=== PATIENT | female | born 1935 | race Caucasian/White ===

== ENCOUNTER 2018-03-16 07:10 | Emergency (ER) | payer MEDICARE, OTHER, SELFPAY ==
[2018-03-16] VITALS (7 sets, daily range): BP systolic 162–218; BP diastolic 73–90; PULSE 60–72; RESP 14–20; TEMP 37.3; O2SAT 97–100
--- NOTE | 2018-03-16 07:30 | ED_ITS ---
HPI - Altered Mental Status General Chief Complaint: Altered Mental Status Stated Complaint: Confusion Time Seen by Provider: 03/16/18 07:30 Source: patient, family and EMS Mode of arrival: EMS Limitations: no limitations History of Present Illness HPI narrative: Patient is an 82-year-old female brought in by EMS for concerns of altered mental status this morning. It was reported by EMS and also the patient's daughter who was at bedside at this morning the patient was standing at the counter trying to make coffee when the daughter stated that she was drooling, was mumbling, could not move. Apparently this has happened in the past. Has been going on for the past 2 years however has been progressively happening more often over the past 2 weeks. Apparently the patient has also fallen in the past because of this but no falls reported today. Patient's daughter states that these events are always very similar in appearance. No shaking like movements however is confused. Has lasted less than 1 min to up to 10 min in length. Patient and daughter state that the patient returns to ? normal? when the event ends. Patient has had 2 head CTs in the past for evaluation of this. One in November of last year in the other 1 in June of last year. Patient states she does not remember the episodes when they happen. Has no prodrome symptoms. Patient states she has talked with her primary doctor regarding them. Has reportedly never seen a neurologist or had any EEG. She states that when she talk to her primary doctor about them he ?increases her blood pressure medicine ?family also concerned because they feel that over the past several weeks the patient has become more confused. Is asking where her is who had several years ago. Is also confused about where she is. This does not appear to be consistent symptoms. Unknown if this is worsening or associated to the altered mental status symptoms that she presented with today. Related Data Previous Rx's Medication Instructions Recorded ACETAMINOPHEN 0 mg PO Q4HP PRN #30 12/05/16 amlodipine [Norvasc] 10 mg PO QDAY #30 12/05/16 enoxaparin [Lovenox] 40 mg SQ QDAY 10 Days #0 12/05/16 nitrofurantoin macrocrystal 100 mg PO BID 5 Days #10 cap 03/16/18 Allergies Allergy/AdvReac Type Severity Reaction Status Date / Time Iodine and Iodide Containing Allergy Unknown Unverified 12/26/17 11:58 Produc [IODINE AND IODIDE CONTAINING PRODUC] Review of Systems Review of Systems Patient reports no abnormal symptoms the time of my evaluation Constitutional Denies fatigue, Denies fever(s), Denies malaise and Denies weakness Eyes Denies blurry vision, Denies dry eyes and Denies itchy eyes ENT Ears, Nose, Mouth, and Throat: Denies dysphagia, Denies vertigo, Denies dizziness, Denies throat swelling and Denies tongue swelling Cardiovascular Denies chest pain, Denies syncope, Denies rapid heart rate, Denies pedal edema, Denies palpitations and Denies dyspnea Respiratory Denies cough, Denies dyspnea, Denies stridor and Denies wheezing Gastrointestinal Gastrointestinal: Denies abdominal pain, Denies melena, Denies constipation, Denies cramping, Denies dysphagia, Denies diarrhea, Denies nausea and Denies vomiting Genitourinary Denies dysuria and Denies flank pain Musculoskeletal Denies myalgias, Denies arthralgias, Denies muscle cramps, Denies muscle weakness and Denies numbness Integumentary/Breasts Denies lesions, Denies rash and Denies wounds Neurologic Reports behavioral changes (This morning but not at the time of my exam), Reports confusion (This morning but not at the time of my exam), Denies vertigo , Denies dizziness, Denies syncope, Denies numbness, Denies convulsions, Denies seizure-like activity, Denies sensory deficit, Denies paresthesias and Denies weakness Psychiatric Reports behavioral changes (This morning but not at the time of my exam) and Reports confusion (This morning but not at the time of my exam) Endocrine Denies fatigue and Denies palpitations Hematologic/Lymphatic Denies easy bleeding and Denies easy bruising Allergic/Immunologic Denies urticaria, Denies itchy eyes, Denies throat swelling, Denies tongue swelling and Denies wheezing Exam Initial Vital Signs Initial Vital Signs: Vital Signs Temperature 99.2 F 03/16/18 07:13 Pulse Rate 64 03/16/18 07:13 Respiratory Rate 19 03/16/18 07:13 Blood Pressure 218/80 H 03/16/18 07:13 Pulse Oximetry 97 03/16/18 07:13 Const General: cooperative, healthy appearing, comfortable, well developed, well groomed and No acute distress Orientation: alert, awake, oriented to person, oriented to place and not oriented to time (Does not know the year or the month or the president) [facility] Head: normal to inspection, normocephalic and atraumatic Ears: hearing grossly normal bilaterally Nose: external nose normal Face and sinus: normal facial exam Mouth: oral mucosae normal Eyes Alignment and Position: alignment normal Eyelids: eyelids normal Conjunctivae: conjunctivae normal Pupils: PERRL EOM: EOM intact bilaterally Neck Neck: normal visual inspection Chest Chest: normal inspection of the chest Resp Effort & Inspection: normal respiratory effort Auscultation: clear to auscultation bilaterally Cardio Rate: regular rate Rhythm: regular rhythm Pulses: radial pulses present GI Inspection: normal to inspection and non-distended Palpation: soft, No guarding and No tender Back/Spine/Pelvis Back: normal to inspection, No back tenderness and No CVA tenderness Skin General: no rashes or lesions noted Lesions: no lesions Rashes: no rashes Wounds: no wounds Neuro General: alert, awake, moves all extremities, no meningeal signs, no focal motor deficits and CN's II-XI intact bilaterally Cranial Nerves: CN's II-XI intact bilaterally Cognition: abnormal cognition (Does not know the year, the month, the president) Speech: speech normal Motor: muscle tone normal throughout and no pronator drift Sensory Exam: no sensory deficits noted Coordination: [id number] test normal Extrem General: normal to inspection, capillary refill normal and normal exam except as noted Psych Appearance: grossly normal and well kempt Affect: normal affect Attitude: cooperative Course Orders Ordered: ED Orders 03/16/18 08:05 CT head/brain wo con Stat 03/16/18 08:40 Urine Culture Stat Urine Microscopic Stat 03/16/18 08:59 Basic Metabolic Panel Stat Complete Blood Count AUTO DIFF Stat Vital Signs - 8 hr 03/16/18 07:13 03/16/18 07:37 03/16/18 08:02 Temperature 99.2 F Pulse Rate 64 72 65 Respiratory Rate 19 19 15 Blood Pressure 218/80 H Blood Pressure [Left Arm] 187/90 H 174/76 H Pulse Oximetry 97 100 97 03/16/18 08:50 03/16/18 09:32 03/16/18 10:05 Temperature Pulse Rate 60 63 64 Respiratory Rate 20 20 14 Blood Pressure Blood Pressure [Left Arm] 162/73 H 176/89 H 166/83 H Pulse Oximetry 98 97 99 MDM - Altered Mental Status Medical Records Attestation: I reviewed the patient's medical records. Lab Data Attestation: I reviewed the patient's lab results. Result diagrams: 03/16/18 08:59 03/16/18 08:59 Lab Results 03/16/18 03/16/18 03/16/18 Range/Units 08:40 08:59 08:59 WBC 6.3 (4.5-11.0) X10^3/uL RBC 4.25 (4.0-5.2) X10^6/uL Hgb 13.3 (12.0-16.0) g/dL Hct 38.4 (36-46) % MCV 90.4 (80-100) fL MCH 31.2 (26-34) PG MCHC 34.6 (30-36) % RDW 13.8 (11.6-14.8) % Plt Count 217 (150-400) X10^3/uL Neut % (Auto) 81.4 H (50-75) % Lymph % (Auto) 10.1 L (25-40) % [place] % (Auto) 7.7 (3-14) % Eos % (Auto) 0.4 L (2-4) % Baso % (Auto) 0.4 (0-2) % Neut # (Auto) 5200 (9272-6382) /uL Sodium 132 L (137-145) mmol/L Potassium 4.6 (3.4-5.1) mmol/L Chloride 99 (98-107) mmol/L Carbon Dioxide 23 (22-32) mmol/L BUN 20 H (7-17) mg/dL Creatinine 1.50 H (0.52-1.04) mg/dL Estimated GFR 33.3 L (>60) mL/min BUN/Creatinine Ratio 13.3 (6-22) Glucose 95 (80-110) mg/dL Calcium 9.0 (8.4-10.2) mg/dL Urine RBC None seen (0-5/HPF) Urine WBC 5-10/hpf H (0-5/HPF) Urine Bacteria Moderate (10-30) H (None) Ur Culture Indicated? Specimen cultured Micro UA Comment Not Reportable Imaging Data CT scan - head: Radiologist's impression: PROCEDURE: CT HEAD/BRAIN WO CON INDICATIONS: Altered mental status and passing out TECHNIQUE: Noncontrast 4.5 mm thick angled axial sections acquired from the foramen magnum to the vertex, with coronal and sagittal reformats. For radiation dose reduction, the following was used: automated exposure control, adjustment of mA and/or kV according to patient size. COMPARISON: [facility], MR, STROKE PROTOCOL, 02/21/2017, 8:50. [facility], CT, HEAD WITHOUT CONTRAST, 01/10/2016, 13:16. [facility], CT, HEAD WITHOUT CONTRAST, 07/02/2017, 11:24. FINDINGS: Image quality: Excellent. CSF spaces: Basal cisterns are patent. No extra-axial fluid collections. The ventricles are dilated but symmetric in size and shape. Ventricular dilation is unchanged. Brain: No intracranial bleeds or masses. There is moderate cerebral volume loss for age, with resultant ventricular and sulcal prominence. There are moderate periventricular and deep white matter chronic small vessel ischemic changes. There is intracranial internal carotid artery atherosclerosis. Skull and face: Calvarium and visualized facial bones appear intact, without suspicious lesions. Sinuses: Visualized sinuses and mastoids are clear. IMPRESSION: 1. No acute intracranial abnormalities. 2. Cerebral volume loss and chronic microvascular ischemic changes. 3. 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 A differential diagnosis is normal pressure hydrocephalus. Recommend clinical correlation. Dictated by: Enrike Mantilla M.D. on 03/16/2018 at 8:32 ECG Data Attestation: I personally reviewed and interpreted this ECG as follows: Prior ECG tracings: not available for review Interpretation: Sinus rhythm Ventricular rate is 67 Occasional PACs Normal axis Normal QRS Normal QTC No ST T wave changes MDM Narrative Medical decision making narrative: Patient had no episodes while here in the emergency department. She was alert and oriented to person and place but had difficulty with the time and year. This appears to be baseline per the daughter who is at bedside. It also appears that the symptoms that brought her to the emergency department today have been happening off and on for the past 2 years. Per their report I do have concern that the patient may be having partial seizures from their description of the symptoms. Her symptoms are not consistent with a CVA. Not consistent with an arrhythmia. Also not consistent with a TIA. She does not have focal neurologic deficits. Patient has had 2 head CTs last year for the symptoms. Discussed with the daughter about repeating the head CT today after this discussion we did decide to repeat it and had no acute abnormalities. It appears the patient has never had an EEG in the past. We did discuss that this should be done an should be ordered by the primary care doctor. Patient does not have any urinary symptoms however is nitrite positive but the urine. Will start on antibiotics. This may also be contributing to the increasing confusion over the past several days/week. We also had a long discussion regarding the patient's living situation and the fact that they should start thinking about whether not the patient should be living at home by herself. We did discuss the difficulty that we have in the emergency department finding placement for patients without indications for admission to the hospital. They expressed understanding of this. Informed the patient and the family that they need to call the primary doctor on Sunday for a follow-up. They were instructed they could return the emergency department at any time for new or worsening symptoms. They all expressed understanding and agreement with plan Discharge Plan Departure Patient Disposition: Home, Self-Care Clinical Impression: Altered mental status, UTI (urinary tract infection) Instructions: DI for Urinary Tract Infection (UTI), How to Prevent Falls, DI for Altered Mental Status Activity Restrictions/Additional Instructions: Recommend that you take all of your medications as instructed. Also recommend that you contact your primary doctor on Sunday to discuss further workup to include an EEG for evaluation of possible seizure-like activity and also to discuss future living situations. You may return to the emergency department at any time for new or worsening symptoms Prescriptions: New nitrofurantoin macrocrystal 100 mg capsule 100 mg PO BID 5 Days Qty: 10 RF: 0 No Action ACETAMINOPHEN PO Q4HP PRNQty: 30 RF: 0 amlodipine [Norvasc] 5 MG tablet 10 mg PO QDAY Qty: 30 RF: 0 enoxaparin [Lovenox] 40 MG/0.4 ML syringe 40 mg SQ QDAY 10 Days Qty: 0 RF: 0
--- NOTE | 2018-03-16 08:05 | DI.CT.S_ITS ---
PROCEDURE: CT HEAD/BRAIN WO CON INDICATIONS: Altered mental status and passing out TECHNIQUE: Noncontrast 4.5 mm thick angled axial sections acquired from the foramen magnum to the vertex, with coronal and sagittal reformats. For radiation dose reduction, the following was used: automated exposure control, adjustment of mA and/or kV according to patient size. COMPARISON: [facility], MR, STROKE PROTOCOL, 02/21/2017, 8:50. [facility], CT, HEAD WITHOUT CONTRAST, 01/10/2016, 13:16. [facility], CT, HEAD WITHOUT CONTRAST, 07/02/2017, 11:24. FINDINGS: Image quality: Excellent. CSF spaces: Basal cisterns are patent. No extra-axial fluid collections. The ventricles are dilated but symmetric in size and shape. Ventricular dilation is unchanged. Brain: No intracranial bleeds or masses. There is moderate cerebral volume loss for age, with resultant ventricular and sulcal prominence. There are moderate periventricular and deep white matter chronic small vessel ischemic changes. There is intracranial internal carotid artery atherosclerosis. Skull and face: Calvarium and visualized facial bones appear intact, without suspicious lesions. Sinuses: Visualized sinuses and mastoids are clear. IMPRESSION: 1. No acute intracranial abnormalities. 2. Cerebral volume loss and chronic microvascular ischemic changes. 3. 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 A differential diagnosis is normal pressure hydrocephalus. Recommend clinical correlation. Dictated by: Enrike Mantilla M.D. on 03/16/2018 at 8:32 Approved by: Enrike Mantilla M.D. on 03/16/2018 at 8:35
[2018-03-16 08:59] LABS: RBC Urine None Seen (0-5/HPF)
[2018-03-16 09:08] LABS: Add Manual Diff / Slide Review NO; Basophils Percent Auto 0.4 % (0-2); Eosinophils Percent Auto 0.4 % (2-4); Hematocrit 38.4 % (36-46); Hemoglobin 13.3 g/dL (12.0-16.0); Lymphocytes Percent Auto 10.1 % (25-40); Mean Corpuscular HGB Conc 34.6 % (30-36); Mean Corpuscular Hemoglobin 31.2 PG (26-34); Mean Corpuscular Volume 90.4 fL (80-100); Monocytes Percent Auto 7.7 % (3-14); Neutrophils Absolute Auto 5200 /uL (3000-5900); Neutrophils Percent Auto 81.4 % (50-75); Platelet Count 217 X10^3/uL (150-400); Red Blood Cell Count 4.25 X10^6/uL (4.0-5.2); Red Cell Distribution Width 13.8 % (11.6-14.8); White Blood Cell Count 6.3 X10^3/uL (4.5-11.0)
[2018-03-16 09:10] LABS: WBC Urine 5-10/HPF (0-5/HPF)
[2018-03-16 09:11] LABS: Bacteria Urine Moderate (10-30); Culture Indicated Urine Specimen Cultured
[2018-03-16 09:19] LABS: BUN Creatinine Ratio 13.3 (6-22); Blood Urea Nitrogen 20 mg/dL (7-17); Carbon Dioxide 23 mmol/L (22-32); Chloride 99 mmol/L (98-107); Estimated Glomerular Filt Rate 33.3 mL/min (>60); Glucose 95 mg/dL (80-110); HEMOLYSIS < 15 (0-50); Potassium 4.6 mmol/L (3.4-5.1); Sodium 132 mmol/L (137-145)
== END 2018-03-16 10:41 | disposition home or self-care (01) ==
PROVIDERS: Emergency Provider Emergency Medicine
DX: N39.0 Urinary tract infection, site not specified (principal); R41.82 Altered mental status, unspecified
CPT/HCPCS: 36591; 70450; 80048; 81003; 81015; 85025; 87077; 87086; 87186; 93005; 99284; 99285

== ENCOUNTER 2019-05-16 11:15 | Emergency (ER) | payer MEDICARE, OTHER, SELFPAY ==
[2019-05-16 11:29] VITALS: BP 173/82; PULSE 78; RESP 16; TEMP 37.2; O2SAT 100; BMI 22.9
[2019-05-16 12:14] VITALS: BP 185/97; PULSE 65; RESP 19; O2SAT 99
[2019-05-16 12:57] VITALS: BP 190/81; PULSE 75; RESP 18; O2SAT 100
--- NOTE | 2019-05-16 13:00 | DI.CT.S_ITS ---
PROCEDURE: CT HEAD/BRAIN WO CON INDICATIONS: righ side weakness now resolved TECHNIQUE: Noncontrast 4.5 mm thick angled axial sections acquired from the foramen magnum to the vertex, with coronal and sagittal reformats. For radiation dose reduction, the following was used: automated exposure control, adjustment of mA and/or kV according to patient size. COMPARISON: [facility], MR, STROKE PROTOCOL, 02/21/2017, 8:50. [facility], CT, CT HEAD/BRAIN WO CON, 03/16/2018, 8:03. FINDINGS: Image quality: Excellent. CSF spaces: Basal cisterns are patent. No extra-axial fluid collections. There is stable diffuse ventricular dilatation. The Brain: No intracranial bleeds or masses. There is cerebral volume loss for age, with resultant ventricular and sulcal prominence. There are stable moderate periventricular and deep white matter chronic small vessel ischemic changes. There is intracranial internal carotid artery atherosclerosis. Skull and face: Calvarium and visualized facial bones appear intact, without suspicious lesions. Sinuses: Visualized sinuses and mastoids are clear. IMPRESSION: 1. Age related volume loss, moderate small vessel ischemic change, stable ventricular dilatation. Ventricular dilatation is likely secondary to atrophy. 2. No evidence acute stroke, hemorrhage, or mass. Dictated by: Connor Cotto M.D. on 05/16/2019 at 14:18 Approved by: Connor Cotto M.D. on 05/16/2019 at 14:21
[2019-05-16 13:27] LABS: Add Manual Diff / Slide Review NO; Basophils Absolute Auto 0 /uL (0-100); Basophils Percent Auto 0.6 % (0-2); Eosinophils Absolute Auto 0 /uL (0-450); Eosinophils Percent Auto 0.5 % (2-4); Hematocrit 41.1 % (36-46); Hemoglobin 14.2 g/dL (12.0-16.0); Lymphocytes Absolute Auto 1100 /uL (1100-4500); Lymphocytes Percent Auto 17.4 % (25-40); Mean Corpuscular HGB Conc 34.6 % (30-36); Mean Corpuscular Hemoglobin 31.8 PG (26-34); Mean Corpuscular Volume 91.8 fL (80-100); Monocytes Absolute Auto 600 /uL (0-900); Monocytes Percent Auto 9.2 % (3-14); Neutrophils Absolute Auto 4400 /uL (1500-7000); Neutrophils Percent Auto 72.3 % (50-75); Platelet Count 203 X10^3/uL (150-400); Red Blood Cell Count 4.48 X10^6/uL (4.0-5.2); Red Cell Distribution Width 13.9 % (11.6-14.8); White Blood Cell Count 6.1 X10^3/uL (4.5-11.0)
--- NOTE | 2019-05-16 13:27 | ED_ITS ---
HPI - Weakness General Chief complaint: Weakness Stated complaint: TIA Time Seen by Provider: 05/16/19 13:00 Source: patient Mode of arrival: EMS Limitations: no limitations History of Present Illness HPI Narrative: Patient comes emergency department after caregiver noticed the patient to develop a brief episode of dense right-sided weakness. Patient has no recollection of the incident, and states she feels totally fine. She no longer has any weakness. Patient denies chest pain or shortness of breath. No nausea or vomiting. No abdominal pain. No dysuria. Patient does not know if she has had a CVA in the past. The patient has a history of dementia and hypertension. No other complaints at this time. Related Data Home Medications Medication Instructions Recorded Confirmed lisinopril 5 mg PO BID 05/16/19 05/16/19 Previous Rx's Medication Instructions Recorded aspirin [Aspirin Low Dose] 81 mg PO DAILY #60 tab 05/16/19 Allergies Allergy/AdvReac Type Severity Reaction Status Date / Time Iodine and Iodide Containing Allergy Unknown Unverified 12/26/17 11:58 Produc [IODINE AND IODIDE CONTAINING PRODUC] Review of Systems Review of Systems ROS Unobtainable: All systems reviewed & are unremarkable except as noted in HPI and below Constitutional Constitutional: Denies chills, Denies fatigue, Denies fever(s), Denies frequent falls, Denies lethargy and Reports weakness Eyes Eyes: Denies change in vision, Denies eye discharge, Denies irritation and Denies loss of vision ENT Ears, Nose, Mouth, and Throat: Denies change in voice, Denies dizziness, Denies neck pain, Denies sore throat and Denies throat swelling Cardiovascular Cardiovascular: Denies chest pain, Denies irregular heart rhythm, Denies lightheadedness, Denies palpitations, Denies dyspnea, Denies dyspnea on exertion and Denies orthopnea Respiratory Respiratory: Denies cough, Denies dyspnea, Denies dyspnea on exertion and Denies wheezing Gastrointestinal Gastrointestinal: Denies abdominal pain, Denies change in bowel habits, Denies diarrhea, Denies nausea and Denies vomiting Genitourinary Genitourinary: Denies hematuria, Denies flank pain, Denies urinary incontinence and Denies urinary urgency Musculoskeletal Musculoskeletal: Denies back pain, Denies muscle weakness, Denies neck pain, Denies numbness and Denies tingling Integumentary/Breasts Skin/Breast: Denies pruritus, Denies erythema, Denies rash and Denies wounds Neurologic Neurologic: Denies behavioral changes, Denies confusion, Denies dizziness, Denies frequent falls, Denies loss of vision, Denies numbness, Denies tingling and Reports weakness Psychiatric Psychiatric: Denies anxiety, Denies behavioral changes, Denies confusion, Denies depression, Denies homicidal ideation and Denies suicidal ideation Endocrine Endocrine: Denies fatigue, Denies flushing and Denies palpitations Hematologic/Lymphatic Hematologic/Lymphatic: Denies easy bruising Allergic/Immunologic Allergic/Immunologic: Denies urticaria, Denies throat swelling and Denies wheezing [facility] Medical History Syncope and collapse (Acute) Social History Smoking Status: Former smoker Social History Smoking Status: Former smoker Exam Initial Vital Signs Initial Vital Signs: Vital Signs Temperature 98.9 F 05/16/19 11:29 Pulse Rate 78 05/16/19 11:29 Respiratory Rate 16 05/16/19 11:29 Blood Pressure 173/82 H 05/16/19 11:29 Pulse Oximetry 100 05/16/19 11:29 Const General: cooperative and well developed Nutritional Appearance: well nourished Orientation: alert and awake Other: Patient is alert and talkative. She answers questions appropriately, but does not remember the incident that happened today. [facility] Head: normocephalic and atraumatic Ears: external ears normal Nose: external nose normal and No nasal discharge Face and sinus: face symmetric and No dry mucous membranes Mouth: oral mucosae normal and moist mucous membranes Teeth and gingiva: dentition normal Eyes General: appearance normal, both eyes and all related structures Eyelids: eyelids normal Conjunctivae: conjunctivae normal Sclera: sclerae normal Pupils: PERRL EOM: EOM intact bilaterally Neck Neck: normal visual inspection, trachea midline, No lymphadenopathy, No midline deformity and No JVD Lymphatic: No lymphedema Chest Chest: normal inspection of the chest Resp Effort & Inspection: normal respiratory effort, able to speak in complete sentences, no respiratory distress and no use of accessory muscles Auscultation: clear to auscultation bilaterally, no rales, no rhonchi and no wheezes Cardio Rate: regular rate Rhythm: regular rhythm Heart Sounds: no click, no gallops, no murmurs and no rubs Pulses: normal peripheral pulses GI Inspection: non-distended Palpation: soft, no hepatosplenomegaly, No guarding, No pulsatile mass and No tender Auscultation: normal bowel sounds Back/Spine/Pelvis Back: No CVA tenderness Cervical Spine: cervical ROM normal and No pain with cervical ROM Thoracic/Lumbar Spine: thoracic and lumbar spine normal to inspection Skin General: no rashes or lesions noted, No jaundice and No petechiae Neuro General: alert, awake, gait normal, no focal motor deficits and CN's II-XI intact bilaterally Speech: speech normal Motor: muscle tone normal throughout and strength 5/5 throughout Extrem General: full ROM, no clubbing, cyanosis or edema, no pedal edema and no calf tenderness Psych Appearance: well kempt Mental Status: mental status grossly normal Attitude: cooperative Thought Content: normal and suicidality Judgment: judgment good Course Course Course Narrative: Patient displayed no focal deficits upon my evaluation. Her head CT was unremarkable, and carotid Doppler ultrasound was unremarkable for carotid stenosis. Labs were also unremarkable. I felt the patient was stable for discharge home. She was not found to have any dysrhythmia on EKG, and she had no murmur. As such, I did not feel that the patient needed to have emergent echocardiogram done. I have started her on a baby aspirin daily, and I would like her to follow up with her primary care physician. She may discuss having an echocardiogram ordered at that time. We have discussed home management of symptoms, as well as the usual indications for return. Orders Ordered: ED Orders 05/16/19 13:00 CT head/brain wo con Stat EKG-12 Lead Stat 05/16/19 13:18 Complete Blood Count AUTO DIFF Stat Comprehensive Metabolic Panel Stat Partial Thromboplastin Time Stat Prothrombin Time INR Stat Troponin I Stat 05/16/19 13:29 US carotid doppler BI Stat 05/16/19 15:14 Urine Culture Stat Urine Microscopic Stat Vital Signs Vital signs: Vital Signs - 8 hr 05/16/19 14:42 05/16/19 14:45 05/16/19 15:50 Pulse Rate 68 74 Respiratory Rate 22 24 Blood Pressure [Left Arm] 220/92 H Blood Pressure [Right Arm] 220/94 H 200/86 H Pulse Oximetry 98 99 MDM - Weakness Medical Records Attestation: I reviewed the patient's medical records. Lab Data Attestation: I reviewed the patient's lab results. Result diagrams: 05/16/19 13:18 05/16/19 13:18 Labs: Lab Results 05/16/19 05/16/19 05/16/19 Range/Units 13:18 13:18 13:18 WBC 6.1 (4.5-11.0) X10^3/uL RBC 4.48 (4.0-5.2) X10^6/uL Hgb 14.2 (12.0-16.0) g/dL Hct 41.1 (36-46) % MCV 91.8 (80-100) fL MCH 31.8 (26-34) PG MCHC 34.6 (30-36) % RDW 13.9 (11.6-14.8) % Plt Count 203 (150-400) X10^3/uL Neut % (Auto) 72.3 (50-75) % Lymph % (Auto) 17.4 L (25-40) % Dundy % (Auto) 9.2 (3-14) % Eos % (Auto) 0.5 L (2-4) % Baso % (Auto) 0.6 (0-2) % Neut # (Auto) 4400 (3805-1229) /uL Lymph # (Auto) 1100 (1203-8461) /uL Dundy # (Auto) 600 (0-900) /uL Eos # (Auto) 0 (0-450) /uL Baso # (Auto) 0 (0-100) /uL PT 11.2 (10.1-12.7) SECONDS INR 1.0 (0.9-1.3) APTT 29 (26.4-36.2) SECONDS Sodium 137 (137-145) mmol/L Potassium 4.4 (3.4-5.1) mmol/L Chloride 102 (98-107) mmol/L Carbon Dioxide 25 (22-32) mmol/L BUN 23 H (7-17) mg/dL Creatinine 1.70 H (0.52-1.04) mg/dL Estimated GFR 28.8 L (>60) mL/min BUN/Creatinine Ratio 13.5 (6-22) Glucose 102 (80-110) mg/dL Calcium 9.1 (8.4-10.2) mg/dL Total Bilirubin 0.7 (0.2-1.3) mg/dL AST 20 (14-36) IU/L ALT 10 (9-52) IU/L Alkaline Phosphatase 67 (38-126) U/L Troponin I < 0.012 (0.01-0.034) ng/mL Total Protein 6.9 (6.3-8.2) g/dL Albumin 4.0 (3.5-5.0) g/dL Globulin 2.9 (1.7-4.1) g/dL Albumin/Globulin Ratio 1.4 (1.0-2.8) Urine RBC (0-5/HPF) Urine WBC (0-5/HPF) Ur Squamous Epith Cells (0-5/HPF) Ur Renal Epithelial Cell (0-1/HPF) Amorphous Sediment Urine Bacteria (None) Ur Culture Indicated? 05/16/19 Range/Units 15:14 WBC (4.5-11.0) X10^3/uL RBC (4.0-5.2) X10^6/uL Hgb (12.0-16.0) g/dL Hct (36-46) % MCV (80-100) fL MCH (26-34) PG MCHC (30-36) % RDW (11.6-14.8) % Plt Count (150-400) X10^3/uL Neut % (Auto) (50-75) % Lymph % (Auto) (25-40) % Dundy % (Auto) (3-14) % Eos % (Auto) (2-4) % Baso % (Auto) (0-2) % Neut # (Auto) (2292-2632) /uL Lymph # (Auto) (0930-8277) /uL Dundy # (Auto) (0-900) /uL Eos # (Auto) (0-450) /uL Baso # (Auto) (0-100) /uL PT (10.1-12.7) SECONDS INR (0.9-1.3) APTT (26.4-36.2) SECONDS Sodium (137-145) mmol/L Potassium (3.4-5.1) mmol/L Chloride (98-107) mmol/L Carbon Dioxide (22-32) mmol/L BUN (7-17) mg/dL Creatinine (0.52-1.04) mg/dL Estimated GFR (>60) mL/min BUN/Creatinine Ratio (6-22) Glucose (80-110) mg/dL Calcium (8.4-10.2) mg/dL Total Bilirubin (0.2-1.3) mg/dL AST (14-36) IU/L ALT (9-52) IU/L Alkaline Phosphatase (38-126) U/L Troponin I (0.01-0.034) ng/mL Total Protein (6.3-8.2) g/dL Albumin (3.5-5.0) g/dL Globulin (1.7-4.1) g/dL Albumin/Globulin Ratio (1.0-2.8) Urine RBC 1-5/hpf (0-5/HPF) Urine WBC 30-100/hpf H (0-5/HPF) Ur Squamous Epith Cells 0-1 /hpf (0-5/HPF) Ur Renal Epithelial Cell 0-1/hpf (0-1/HPF) Amorphous Sediment 1+ Urine Bacteria Many (>30) H (None) Ur Culture Indicated? Specimen cultured Point of Care Testing Glucose POC 86 Urine Dip Bedside Urine Glucose Negative Bedside Urine Bilirubin - Negative Bedside Urine Ketone - Negative Urine Specific [place] 1.015 Bedside Urine Occult Blood +/- Bedside Urine pH 7.0 Bedside Urine Protein +/- 15 Bedside Urine Urobilinogen - Negative Bedside Urine Nitrite + Positive Bedside Urine Leukocytes ++ [address] scan - head: Radiologist's impression: PROCEDURE: CT HEAD/BRAIN WO CON INDICATIONS: righ side weakness now resolved TECHNIQUE: Noncontrast 4.5 mm thick angled axial sections acquired from the foramen magnum to the vertex, with coronal and sagittal reformats. For radiation dose reduction, the following was used: automated exposure control, adjustment of mA and/or kV according to patient size. COMPARISON: [facility], MR, STROKE PROTOCOL, 02/21/2017, 8:50. [facility], CT, CT HEAD/BRAIN WO CON, 03/16/2018, 8:03. FINDINGS: Image quality: Excellent. CSF spaces: Basal cisterns are patent. No extra-axial fluid collections. There is stable diffuse ventricular dilatation. The Brain: No intracranial bleeds or masses. There is cerebral volume loss for age, with resultant ventricular and sulcal prominence. There are stable moderate periventricular and deep white matter chronic small vessel ischemic changes. There is intracranial internal carotid artery atherosclerosis. Skull and face: Calvarium and visualized facial bones appear intact, without suspicious lesions. Sinuses: Visualized sinuses and mastoids are clear. IMPRESSION: 1. Age related volume loss, moderate small vessel ischemic change, stable ventricular dilatation. Ventricular dilatation is likely secondary to atrophy. 2. No evidence acute stroke, hemorrhage, or mass. Dictated by: Connor Cotto M.D. on 05/16/2019 at 14:18 Approved by: Connor Cotto M.D. on 05/16/2019 at 14:21 Carotid Doppler ultrasound: Radiologist's impression: PROCEDURE: US CAROTID BILATERAL INDICATIONS: CAROTID STENOSIS TECHNIQUE: Color and pulse Doppler interrogation was performed of both carotid systems, with image documentation and velocity measurements. COMPARISON: None. FINDINGS: Stenosis calculations are based on SRU (Society of Radiologists in Ultrasound) criteria. Right side: Brachial blood pressure: 130/74 mm Hg. Common Carotid Artery PSV: - Distal: 102 cm/s Internal Carotid Artery PSV - 67 cm/s EDV- 19 cm/s External Carotid Artery PSV- Proximal: 63 cm/s ICA/CCA PSV- Ratio: 0.66 Sanders scale imaging description: No significant plaque. No stenosis. Percent internal carotid artery stenosis: Widely patent vessel. Vertebral artery: Flow direction is antegrade. Left side: Brachial blood pressure: 134/72 mm Hg. Common Carotid Artery PSV- Distal: 91 cm/s Internal Carotid Artery PSV- 73 cm/s EDV- 17 cm/s External Carotid Artery PSV- Proximal: 76 cm/s ICA/CCA PSV- Ratio: 0.79 Sanders scale imaging description: Minimal plaque Percent internal carotid artery stenosis: No significant stenosis in. Vertebral artery: Flow direction is antegrade. IMPRESSION: Unremarkable duplex carotid ultrasound with widely patent carotids. Dictated by: Connor Cotto M.D. on 05/16/2019 at 15:02 Approved by: Connor Cotto M.D. on 05/16/2019 at 15:18 ECG Data Attestation: I personally reviewed and interpreted this ECG as follows: (See below) Interpretation: Twelve lead EKG performed May 16, 2019 at 1:09 p.m., as follows: Regular ventricular rhythm with a rate of 70 beats per minute MA interval 158 millisecond QRS duration 83 millisecond QTC interval 419 millisecond No ectopy No significant ST T wave changes Interpretation: Normal sinus rhythm; no signs acute ischemia; normal EKG as interpreted by ED MD. Discharge Plan Departure Patient Disposition: Home Clinical Impression: Brain TIA Discharge Date/Time: 05/16/19 16:10 Instructions: DI for Transient Ischemic Attack Activity Restrictions/Additional Instructions: Your CT scan and carotid ultrasounds look good. You need to be on aspirin every day for prevention of stroke. At this point time, there is no further intervention to be done except to prevent further strokes. Please follow up with your primary care physician. Prescriptions: New aspirin [Aspirin Low Dose] 81 mg tablet,delayed release (DR/EC) 81 mg PO DAILY Qty: 60 RF: 0 No Action lisinopril 5 mg Tablet 5 mg PO BID RF: 0 Referrals: Rahat Espinosa MD [Primary Care Provider] -
[2019-05-16 13:32] LABS: Prothrombin Time 11.2 SECONDS (10.1-12.7)
[2019-05-16 13:35] LABS: PTT Partial Thromboplastin Tim 29 SECONDS (26.4-36.2)
[2019-05-16 13:37] LABS: Alanine Aminotransferase 10 IU/L (9-52); Albumin Globulin Ratio 1.4 (1.0-2.8); Alkaline Phosphatase 67 U/L (38-126); Aspartate Aminotransferase 20 IU/L (14-36); BUN Creatinine Ratio 13.5 (6-22); Bilirubin Total 0.7 mg/dL (0.2-1.3); Blood Urea Nitrogen 23 mg/dL (7-17); Calcium 9.1 mg/dL (8.4-10.2); Carbon Dioxide 25 mmol/L (22-32); Chloride 102 mmol/L (98-107); Estimated Glomerular Filt Rate 28.8 mL/min (>60); Globulin 2.9 g/dL (1.7-4.1); Glucose 102 mg/dL (80-110); HEMOLYSIS < 15 (0-50); Potassium 4.4 mmol/L (3.4-5.1); Sodium 137 mmol/L (137-145); Total Protein 6.9 g/dL (6.3-8.2)
[2019-05-16 13:48] LABS: Troponin I < 0.012 ng/mL (0.01-0.034)
[2019-05-16 14:42] VITALS: BP 220/92; PULSE 68; RESP 22; O2SAT 98
[2019-05-16 14:45] VITALS: BP 220/94
[2019-05-16 15:39] LABS: Amorphous Sediment Urine 1+; Bacteria Urine Many (>30); Culture Indicated Urine Specimen Cultured; RBC Urine 1-5/HPF (0-5/HPF); Renal Epithelial Cells Urine 0-1/HPF (0-1/HPF); Squamous Epithelial Cell Urine 0-1 /HPF (0-5/HPF); WBC Urine 30-100/HPF (0-5/HPF)
[2019-05-16 15:50] VITALS: BP 200/86; PULSE 74; RESP 24; O2SAT 99
--- NOTE | 2019-05-20 17:29 | PC.NURSE ---
05/20/19, pt comes into the ED admit desk with daughter in law, Tricia. Tricia states pt is here due to primary md (arnaldo) sending here here. pt seems alert/ answering questions appropriately, and states does not want to be here and does not want to go to [facility], which Tricia was saying that she would just walk her over to [facility]. I told the pt and daughter in law that it does not work that way, need eval and there is probably a waiting list etc. daughter in law would like to see adoption social worker, I told her she was not here till 430 and that she had a few to see in the ED first. she stated she would wait, in the mean time I have her a senior resource book and kept her informed about when they would be seen. 1730, Sophia to see pt and daughter in law. in the mean time at 1630, as I was speaking to pt and daughter in law, Ubaldo the son in law, called admitting and asked why pt was not being admitted. Debi, gave me the phone, because Tricia did not want to speak with him. and as I am trying to explain to him, the process, he was loud and spoke over me and finally I could not speak to him, because of his talking 1730 social service to see.
== END 2019-05-16 16:10 | disposition home or self-care (01) ==
PROVIDERS: Emergency Provider Emergency Medicine; Family Provider Family Medicine; PCP Family Medicine
DX: G45.8 Other transient cerebral ischemic attacks and related syndromes (principal)
CPT/HCPCS: 36415; 70450; 80053; 81003; 81015; 82962; 84484; 85025; 85610; 85730; 87077; 87086; 87186; 93005; 93880; 99283; 99285

== ENCOUNTER 2019-05-20 17:49 | Inpatient (IN) | payer MEDICARE, OTHER, SELFPAY ==
[2019-05-20 17:57] VITALS: BP 136/72; PULSE 77; RESP 18; TEMP 36.6; O2SAT 97
--- NOTE | 2019-05-20 18:05 | PC.NURSE ---
per pt's daughter pt is increasingly confused, recently dx with uti and failed to treat the infection appropriatly. pt's daughter concerned that pt can not take care of herself. pt is oriented to self, after a few minutes of interviewing it is obvious the pt is not oriented past herself and place.
--- NOTE | 2019-05-20 18:08 | ED.AMS ---
HPI - Altered Mental Status General Chief Complaint: Altered Mental Status Stated Complaint: CANT WALK/FATIGUE Time Seen by Provider: 05/20/19 18:08 Source: patient Mode of arrival: ambulatory Limitations: altered mental status History of Present Illness HPI narrative: 83-year-old female nonsmoker with history of TIA, Parkinsonism presents with her daughter for evaluation altered mental status, increasing weakness and frequent falls over past week or so.She lives at home alone with little to no access to help. She has had increasing difficulty with ambulation and has been unable to care for herself after the past week or so. She was seen on 05/17 for TIA and was discharged in what seemed to be her normal state of health. Since then she has had multiple falls without significant injury. She is confused and refuses any help from family. DPGORDON is a daughter [place] east, whom daughter at the bedside is in contact with. Patient refers to her frequently, but he has been for some time. Additionally, she cannot state the date, or place. She is unable to demonstrate capacity to make her own decisions. Family has been pushing for her to move east to be closer to them, but she has thusfar been reluctant, again stating that she needs to be with her and her friends. She has had no fever or chills nor any N/V/D. She admittedly has not been eating or drinking much as shedoesn't want to. Daughter states that up until a few days ago she was able to ambulate without significant difficulty. complaint: confusion and weakness Onset (ago): day(s) Timing confirmed by: family member Severity: moderate Consistency of symptoms: getting worse Associated symptoms: weakness and difficulty walking Related Data Home Medications Medication Instructions Recorded Confirmed lisinopril 5 mg PO BID 05/16/19 05/20/19 phenazopyridine 200 mg PRN 05/20/19 sulfamethoxazole-trimethoprim 1 tab PO BID 05/20/19 05/20/19 [Bactrim DS] Previous Rx's Medication Instructions Recorded aspirin [Aspirin Low Dose] 81 mg PO DAILY #60 tab 05/16/19 Allergies Allergy/AdvReac Type Severity Reaction Status Date / Time Iodine and Iodide Containing Allergy Unknown Unverified 12/26/17 11:58 Produc [IODINE AND IODIDE CONTAINING PRODUC] Review of Systems Review of Systems Narrative: ROS obtained from daughter ROS Unobtainable: Unobtainable due to mental status/LOC Constitutional Constitutional: Denies chills, Reports fatigue, Denies fever(s), Reports frequent falls, Denies lethargy, Reports poor appetite and Reports weakness Eyes Eyes: Denies change in vision, Denies eye discharge, Denies irritation and Denies loss of vision ENT Ears, Nose, Mouth, and Throat: Denies change in voice, Denies dizziness, Denies neck pain, Denies sore throat and Denies throat swelling Cardiovascular Cardiovascular: Denies chest pain, Denies irregular heart rhythm, Denies lightheadedness, Denies palpitations, Denies dyspnea, Denies dyspnea on exertion and Denies orthopnea Respiratory Respiratory: Denies cough, Denies dyspnea, Denies dyspnea on exertion and Denies wheezing Gastrointestinal Gastrointestinal: Denies abdominal pain, Denies change in bowel habits, Denies diarrhea, Denies nausea and Denies vomiting Genitourinary Genitourinary: Denies hematuria, Denies flank pain, Denies urinary incontinence and Denies urinary urgency Musculoskeletal Musculoskeletal: Reports abnormal gait, Denies back pain, Denies muscle weakness, Denies neck pain, Denies numbness and Denies tingling Integumentary/Breasts Skin/Breast: Denies pruritus, Denies erythema, Denies rash and Denies wounds Neurologic Neurologic: Reports abnormal gait, Denies behavioral changes, Denies confusion, Denies dizziness, Reports frequent falls, Denies loss of vision, Denies numbness, Denies tingling and Reports weakness Psychiatric Psychiatric: Denies anxiety, Denies behavioral changes, Denies confusion, Denies depression, Denies homicidal ideation and Denies suicidal ideation Endocrine Endocrine: Reports fatigue, Denies flushing and Denies palpitations Hematologic/Lymphatic Hematologic/Lymphatic: Denies easy bruising Allergic/Immunologic Allergic/Immunologic: Denies urticaria, Denies throat swelling and Denies wheezing Exam Narrative Exam Narrative: GENERAL: [83] year old patient appears stated age. Thin, well-developed, pleasantly confused, GCS 15, resting parkinsonian tremor HEAD: Atraumatic. Normocephalic. EYES: Pupils equal round and reactive. Extraocular motions intact. No scleral icterus. No injection or drainage. ENT: Dry mucous membranes Nose without bleeding, purulent drainage. Throat without erythema, tonsillar hypertrophy or exudate. Airway patent. NECK: Trachea midline. Non tender CARDIOVASCULAR: Regular rate and rhythm without murmurs, gallops, or rubs. RESPIRATORY: Clear to auscultation. Breath sounds equal bilaterally. No wheezes, rales, or rhonchi. GASTROINTESTINAL: Abdomen soft, non-tender, nondistended. EXTREMITIES: No edema or joint tenderness. BACK: Nontender without deformity or crepitance. No flank tenderness. NEURO: AOx1 SKIN: No rash or erythema of visible areas Initial Vital Signs Initial Vital Signs: Vital Signs Temperature 97.9 F 05/20/19 17:57 Pulse Rate 77 05/20/19 17:57 Respiratory Rate 18 05/20/19 17:57 Blood Pressure 136/72 05/20/19 17:57 Pulse Oximetry 97 05/20/19 17:57 Course Orders Ordered: ED Orders 05/20/19 18:10 CT head/brain wo con Stat 05/20/19 18:20 Acetaminophen Stat Complete Blood Count AUTO DIFF Stat Comprehensive Metabolic Panel Stat Ethanol (ETOH) Stat Lactate (Lactic Acid) Stat Partial Thromboplastin Time Stat Prolactin Stat Prothrombin Time INR Stat Salicylate Stat Thyroid Stimulating Hormone Stat Troponin I Stat 05/20/19 19:15 Blood Culture Stat 05/20/19 19:21 EKG-12 Lead Stat 05/20/19 20:10 Urine Culture Stat Urine Drug Screen, Rapid Stat Acetaminophen (Tylenol) 650 mg PO Q6HR PRN PRN Reason: As Needed for Fever/Mild Pain Heparin Sodium (Porcine) (Heparin) 5,000 unit SUBCUT BID [facility] Sodium Chloride (Normal Saline 0.45%) 1,000 mls @ 125 mls/hr IV CONT ONE Stop: 05/21/19 05:25 Last Admin: 05/20/19 22:19 Dose: 125 mls/hr Documented by: VERNON Ceftriaxone Sodium/Dextrose (Rocephin) 1 gm in 50 mls @ 100 mls/hr IV Q24H [facility] Last Infusion: 05/21/19 00:03 Dose: 0 mls/hr Documented by: Admin: 05/20/19 22:20 Dose: 100 mls/hr Documented by: VERNON Magnesium Hydroxide (Milk Of Magnesia) 30 ml PO DAILY PRN PRN Reason: Constipation Ondansetron HCl (Zofran) 4 mg IV Q6HR [facility] Last Admin: 05/21/19 00:05 Dose: 4 mg Documented by: YNICHOL Discontinued Medications Sodium Chloride (Normal Saline 0.9%) 1,000 mls @ 150 mls/hr IV CONT ZOE Last Infusion: 05/20/19 20:29 Dose: 0 mls/hr Documented by: Admin: 05/20/19 19:23 Dose: 150 mls/hr Documented by: SCANAPO Consultations Consultation #1: hospitalist happy to accept on her service Vital Signs Vital signs: Vital Signs - 8 hr 05/20/19 20:00 Pulse Rate 99 H Blood Pressure [Left Arm] 129/78 Pulse Oximetry 97 MDM - Altered Mental Status Lab Data Result diagrams: 05/20/19 18:20 05/20/19 18:20 Labs: Lab Results 05/20/19 05/20/19 05/20/19 Range/Units 18:20 18:20 18:20 WBC 8.6 (4.5-11.0) X10^3/uL RBC 4.41 (4.0-5.2) X10^6/uL Hgb 13.9 (12.0-16.0) g/dL Hct 40.3 (36-46) % MCV 91.4 (80-100) fL MCH 31.6 (26-34) PG MCHC 34.6 (30-36) % RDW 13.7 (11.6-14.8) % Plt Count 177 (150-400) X10^3/uL Neut % (Auto) 72.2 (50-75) % Lymph % (Auto) 12.6 L (25-40) % [place] % (Auto) 14.7 H (3-14) % Eos % (Auto) 0.3 L (2-4) % Baso % (Auto) 0.2 (0-2) % Neut # (Auto) 6200 (0765-3361) /uL Lymph # (Auto) 1100 (8328-7388) /uL [place] # (Auto) 1300 H (0-900) /uL Eos # (Auto) 0 (0-450) /uL Baso # (Auto) 0 (0-100) /uL PT 11.0 (10.1-12.7) SECONDS INR 1.0 (0.9-1.3) APTT 28 (26.4-36.2) SECONDS Sodium 134 L (137-145) mmol/L Potassium 4.4 (3.4-5.1) mmol/L Chloride 100 (98-107) mmol/L Carbon Dioxide 23 (22-32) mmol/L BUN 33 H (7-17) mg/dL Creatinine 2.40 H (0.52-1.04) mg/dL Estimated GFR 19.3 L (>60) mL/min BUN/Creatinine Ratio 13.8 (6-22) Glucose 109 (80-110) mg/dL Lactate (0.7-2.1) mmol/L Calcium 9.2 (8.4-10.2) mg/dL Total Bilirubin 0.9 (0.2-1.3) mg/dL AST 29 (14-36) IU/L ALT 14 (9-52) IU/L Alkaline Phosphatase 67 (38-126) U/L Troponin I < 0.012 (0.01-0.034) ng/mL Total Protein 7.0 (6.3-8.2) g/dL Albumin 4.1 (3.5-5.0) g/dL Globulin 2.9 (1.7-4.1) g/dL Albumin/Globulin Ratio 1.4 (1.0-2.8) TSH (0.47-4.68) uIU/mL Prolactin 19.6 H (3.0-18.6) ng/mL Salicylates < 1.0 (<20) mg/dL Urine Opiates Screen (Negative) Ur Oxycodone Screen (Negative) Urine Methadone Screen (Negative) Acetaminophen < 10 L (10-30) ug/mL Ur Barbiturates Screen (Negative) U Tricyclic Antidepress (Negative) Ur Phencyclidine Scrn (Negative) Ur Amphetamines Screen (Negative) U Methamphetamines Scrn (Negative) Ur MDMA Scrn (Ecstasy) (Negative) U Benzodiazepines Scrn (Negative) Urine Cocaine Screen (Negative) U Marijuana (THC) Screen (Negative) Ethyl Alcohol < 10 ( - 10) mg/dL 05/20/19 05/20/19 05/20/19 Range/Units 18:20 18:20 20:10 WBC (4.5-11.0) X10^3/uL RBC (4.0-5.2) X10^6/uL Hgb (12.0-16.0) g/dL Hct (36-46) % MCV (80-100) fL MCH (26-34) PG MCHC (30-36) % RDW (11.6-14.8) % Plt Count (150-400) X10^3/uL Neut % (Auto) (50-75) % Lymph % (Auto) (25-40) % [place] % (Auto) (3-14) % Eos % (Auto) (2-4) % Baso % (Auto) (0-2) % Neut # (Auto) (4822-3702) /uL Lymph # (Auto) (9076-0189) /uL [place] # (Auto) (0-900) /uL Eos # (Auto) (0-450) /uL Baso # (Auto) (0-100) /uL PT (10.1-12.7) SECONDS INR (0.9-1.3) APTT (26.4-36.2) SECONDS Sodium (137-145) mmol/L Potassium (3.4-5.1) mmol/L Chloride (98-107) mmol/L Carbon Dioxide (22-32) mmol/L BUN (7-17) mg/dL Creatinine (0.52-1.04) mg/dL Estimated GFR (>60) mL/min BUN/Creatinine Ratio (6-22) Glucose (80-110) mg/dL Lactate 1.5 (0.7-2.1) mmol/L Calcium (8.4-10.2) mg/dL Total Bilirubin (0.2-1.3) mg/dL AST (14-36) IU/L ALT (9-52) IU/L Alkaline Phosphatase (38-126) U/L Troponin I (0.01-0.034) ng/mL Total Protein (6.3-8.2) g/dL Albumin (3.5-5.0) g/dL Globulin (1.7-4.1) g/dL Albumin/Globulin Ratio (1.0-2.8) TSH 1.84 (0.47-4.68) uIU/mL Prolactin (3.0-18.6) ng/mL Salicylates (<20) mg/dL Urine Opiates Screen Negative (Negative) Ur Oxycodone Screen Negative (Negative) Urine Methadone Screen Negative (Negative) Acetaminophen (10-30) ug/mL Ur Barbiturates Screen Negative (Negative) U Tricyclic Antidepress Negative (Negative) Ur Phencyclidine Scrn Negative (Negative) Ur Amphetamines Screen Negative (Negative) U Methamphetamines Scrn Negative (Negative) Ur MDMA Scrn (Ecstasy) Negative (Negative) U Benzodiazepines Scrn Negative (Negative) Urine Cocaine Screen Negative (Negative) U Marijuana (THC) Screen Positive H (Negative) Ethyl Alcohol ( - 10) mg/dL Imaging Data CT scan - head: Radiologist's impression: Chart Viewer Diagnostics DATE TYPE STATUS AUTHOR Hx 05/20/19 18:10 Shahla Valdes 05/16/19 13:29 Connor Cotto 05/16/19 13:00 Connor Cotto 03/16/18 08:05 AnnaleeWes Alicia Rossi I 83, F1 ADM IN, ICU 101 -1 177.8cm 72.4kg BMI: 22.9kg/m? Search Chart No Data to Display ONSET Today 00:01 Alicia Rossi I 83 F 1935 [place] [address] CT Scan Report Signed Patient: Alicia Rossi IMR#: [id number] : [id number] Age/Sex: 83 / FDate of Service: 05/20/19 Loc: ED Accession Number: [id number] Procedure: CT head/brain wo con Ordering Provider: Peng Monzon D.O. PROCEDURE: CT HEAD/BRAIN WO CON INDICATIONS: mental status change TECHNIQUE: Noncontrast 4.5 mm thick angled axial sections acquired from the foramen magnum to the vertex, with coronal and sagittal reformats. For radiation dose reduction, the following was used: automated exposure control, adjustment of mA and/or kV according to patient size. COMPARISON: [facility], CT, CT HEAD/BRAIN WO CON, 05/16/2019, 13:53. FINDINGS: Image quality: Excellent. CSF spaces: Basal cisterns are patent. No extra-axial fluid collections. The ventricles are symmetric in size and shape. Brain: No intracranial bleeds or masses. There is marked cerebral volume loss for age, with resultant ventricular and sulcal prominence. There are extensive periventricular and deep white matter chronic small vessel ischemic changes. There are punctate basal ganglia calcifications bilaterally, as before. There is intracranial internal carotid artery atherosclerosis. Skull and face: Calvarium and visualized facial bones appear intact, without suspicious lesions. Sinuses: Visualized sinuses and mastoids are clear. IMPRESSION: 1. No acute intracranial findings. 2. Extensive finding likely associated with chronic microvascular ischemic changes. Dictated by: Shahla Valdes M.D. on 05/20/2019 at 19:48 Approved by: Shahla Valdes M.D. on 05/20/2019 at 19:52 Discharge Plan Departure Patient Disposition: Admitted As Inpatient Clinical Impression: Acute kidney injury, Weakness, Transient ischemic attack Discharge Date/Time: 05/20/19 21:20 Admit Date/Time: 05/20/19 21:08 Admit Provider: Katy Reyna
--- NOTE | 2019-05-20 18:28 | CM.SWNOTE ---
ED [employer] Presenting Problem: Pt is an 83 yo woman brought to the ED by her daughter after a visit to her PCP in [place]. Daughter has been concerned, along with other family members, that pt is unable to care for herself. She had very specific information about he past week which had included frequent falls, weakness, failing memory, recent ED visit and an untreated UTI. Daughter stated that PCP told pt that it is time to be placed in a facility where she can get more care, but pt is not willing. Pt's daughter stated that she was POA and had paperwork, but [employer] initially informed her that pt would need to be deemed non-decisional in order for the POA to go into effect. After meeting with pt and seeing the extent of cognitive impairment, it appears that pt is not decisional. This will need to be confirmed by her provider for POA to become the legal decision maker. MSE Due to daughter's concern's about pt's memory, VENITACW conducted a very brief assessment. Pt is alert and oriented to self. She appears to be very self-confident and aware, but when asked date, month, year, and season she did not know and did not even venture a guess. 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 Pt seemed to begin to get frustrated and stated I'm done with those quesitons so [employer] did not ask any additional ones. This information was provided to pt's provider and nurse. Plan: Pt needs to be assessed medically. Once it is determined if pt meets medical criteria for admission or not, SW will provide appropriate resources. SW to follow.
[2019-05-20 18:30] LABS: Add Manual Diff / Slide Review NO; Basophils Absolute Auto 0 /uL (0-100); Basophils Percent Auto 0.2 % (0-2); Eosinophils Absolute Auto 0 /uL (0-450); Eosinophils Percent Auto 0.3 % (2-4); Hematocrit 40.3 % (36-46); Hemoglobin 13.9 g/dL (12.0-16.0); Lymphocytes Absolute Auto 1100 /uL (1100-4500); Lymphocytes Percent Auto 12.6 % (25-40); Mean Corpuscular HGB Conc 34.6 % (30-36); Mean Corpuscular Hemoglobin 31.6 PG (26-34); Mean Corpuscular Volume 91.4 fL (80-100); Monocytes Absolute Auto 1300 /uL (0-900); Monocytes Percent Auto 14.7 % (3-14); Neutrophils Absolute Auto 6200 /uL (1500-7000); Neutrophils Percent Auto 72.2 % (50-75); Platelet Count 177 X10^3/uL (150-400); Red Blood Cell Count 4.41 X10^6/uL (4.0-5.2); Red Cell Distribution Width 13.7 % (11.6-14.8); White Blood Cell Count 8.6 X10^3/uL (4.5-11.0)
[2019-05-20 18:34] LABS: HEMOLYSIS < 15 (0-50)
[2019-05-20 18:39] LABS: PTT Partial Thromboplastin Tim 28 SECONDS (26.4-36.2)
[2019-05-20 18:40] LABS: Lactate (Lactic Acid) 1.5 mmol/L (0.7-2.1)
[2019-05-20 18:41] LABS: Alanine Aminotransferase 14 IU/L (9-52); Albumin 4.1 g/dL (3.5-5.0); Albumin Globulin Ratio 1.4 (1.0-2.8); Alkaline Phosphatase 67 U/L (38-126); Aspartate Aminotransferase 29 IU/L (14-36); BUN Creatinine Ratio 13.8 (6-22); Bilirubin Total 0.9 mg/dL (0.2-1.3); Blood Urea Nitrogen 33 mg/dL (7-17); Calcium 9.2 mg/dL (8.4-10.2); Carbon Dioxide 23 mmol/L (22-32); Chloride 100 mmol/L (98-107); Estimated Glomerular Filt Rate 19.3 mL/min (>60); Globulin 2.9 g/dL (1.7-4.1); Glucose 109 mg/dL (80-110); Potassium 4.4 mmol/L (3.4-5.1); Sodium 134 mmol/L (137-145)
[2019-05-20 18:48] LABS: Acetaminophen < 10 ug/mL (10-30); Ethanol (ETOH) < 10 mg/dL; Salicylate < 1.0 mg/dL (<20)
[2019-05-20 18:52] LABS: Troponin I < 0.012 ng/mL (0.01-0.034)
[2019-05-20 19:07] LABS: Prolactin 19.6 ng/mL (3.0-18.6)
[2019-05-20 19:23] LABS: Thyroid Stimulating Hormone 1.84 uIU/mL (0.47-4.68)
[2019-05-20] MEDS: SODIUM CHLORIDE 0.9% 1,000 ML 150 ML IV (19:23)
[2019-05-20 20:00] VITALS: BP 129/78; PULSE 99; O2SAT 97
[2019-05-20 20:29] LABS: Urine Amphetamines Negative (Negative); Urine Barbiturates Negative (Negative); Urine Benzodiazepines Negative (Negative); Urine Cocaine Negative (Negative); Urine MDMA Negative (Negative); Urine Methadone Negative (Negative); Urine Methamphetamines Negative (Negative); Urine Morphine/Opi cutoff 2000 Negative (Negative); Urine Oxycodone Negative (Negative); Urine Phencyclidine Negative (Negative); Urine THC Positive (Negative); Urine Tricyclic Antidepressant Negative (Negative)
[2019-05-20 21:40] VITALS: BP 145/95; PULSE 73; RESP 18; TEMP 37.2; O2SAT 93
[2019-05-20 21:52] VITALS: BMI 22.8
[2019-05-20] MEDS: SODIUM CHLORIDE 0.45% 1,000 ML 125 ML IV (22:19)
[2019-05-20] MEDS: CEFTRIAXONE 1 GM/50 ML FROZ.PIGGY IV (22:20)
--- NOTE | 2019-05-20 22:33 | PC.NURSE ---
2144 - Pt to room from ER via wheelchair. Assist to stand pivot transfer to bed. Pt daughter left for home, taking pt purse. Pt with exaggerated movements of the right upper extremity and impulsiveness with movements. Asked pt about movement, pt unable to report onset state that she doesn't notice. Pt oriented to self and place. Discussed falls at home and walker use. Educated to fall precautions, call light use and bed alarm. Pt able to state that she takes a pill for blood pressure and occasionally an [id number] sleeping pill. It was very difficult to obtain MRSA swab of pt. Pt unable to hold still repeatedly jerking head away. BP slightly elevated, however again pt with spastic-type movements. IV fluid and abx infusion initiated to IV in left forearm. Warm blanket and comfort measures provided. Call light in reach. Bed alarm on.
--- NOTE | 2019-05-20 22:36 | P.HP_ITS ---
History of Present Illness History of Present Illness Date Patient Seen: 05/20/19 Time Patient Seen: 21:00 Chief complaint: CANT WALK/FATIGUE Narrative: Alicia Chapa is a confused 83-year-old female with essential hypertension, and dementia common parkinsonian syndrome, who presents with her daughter, Mery from [place] after a series of multiple falls. Patient is not a reliable historian and minimizes things much of the history is given by her daughter, Mery. Her daughter came out to visit her on May 07 and on the the patient was very fatigued at their local [facility]. She sat down and had to catch her breath. She was eventually able to leave the premises and go home. On May 10 she was eating in a restaurant when she got up to use the bathroom and apparently her legs gave out on her. And then on May 14 she was seen for what appeared to be a seizure-like behavior where she gets really stiff and then has significant can't nasal discharge. She apparently fell when she was skilled nursing between the shower and the floor and got wedged in between the shower on the toilet requiring EMS to come and visit her and extracted her from her fall. On May 14 [facility] saw her and then on the they also saw our and told the daughter that they stated she was quite tired. On May 16 the [facility] thought that the patient might be having a CVA. The patient was seen and discharged with a from the emergency department with a suspected TIA. She did not have any focal symptoms at the time and was discharged with aspirin 81 mg daily and for her to discuss with her PCP the feasibility of having an echocardiogram done. The patient fell again this Sunday from a standing position and her daughter was with her when this happened apparently falling on the rug in her bedroom. And then today she was unable to do any of her ADLs, such as showering, getting her clothes on, and feeding herself. Patient History Medical History (Updated 05/20/19 @ 23:04 by MICHEAL Juarez) Essential hypertension (Acute) Fracture of left hip requiring operative repair (Acute) Frequent falls (Acute) Glaucoma (Acute) Parkinsonian syndrome (Acute) Syncope and collapse (Acute) Social History household members: other Smoking Status: Former smoker alcohol intake: current Family & Social History Social History: household members other Prior Living Arrangements House Safety & Behavioral: Feels Safe in Current Yes Environment Been Physically Hurt or No Threatened By a Person Suicidal Ideation Description None Tobacco & Substance use: Smoking Status Former smoker alcohol intake current alcohol intake frequency 0-2 drinks per day mixed whiskey drinks Substance Use Type does not use Meds Home Medications and Allergies Home Medications Medication Instructions Recorded Confirmed Type aspirin [Aspirin Low Dose] 81 mg PO DAILY #60 tab 05/16/19 05/20/19 Rx lisinopril 5 mg PO BID 05/16/19 05/20/19 History phenazopyridine 200 mg PRN 05/20/19 History sulfamethoxazole-trimethoprim 1 tab PO BID 05/20/19 05/20/19 History [Bactrim DS] Allergies Allergy/AdvReac Type Severity Reaction Status Date / Time Iodine and Iodide Containing Allergy Unknown Unverified 12/26/17 11:58 Produc [IODINE AND IODIDE CONTAINING PRODUC] Review of Systems Review of Systems ROS Unobtainable: unobtainable due to mental status (States negative to anything aside from being incontinent of urine) Exam Vital Signs (past 8 hours): - 05/20/19 17:57 05/20/19 20:00 05/20/19 21:40 Temperature 97.9 F 98.9 F Pulse Rate 77 99 H 73 Respiratory Rate 18 18 Blood Pressure 136/72 145/95 H Blood Pressure [Left Arm] 129/78 Pulse Oximetry 97 97 93 Oxygen Delivery Method Room Air Narrative Exam Narrative: Gen: Patient is alert to herself only, frequently repeats questions, is confused HEENT: normocephalic, atraumatic, conjunctiva clear, sclera non-icteric, oral mucosa pink and moist Neck: supple, full ROM Resp: Lungs CTA, non-labored breathing CV: RRR, no murmur or rubs Abd: soft, non-tender, normoactive BTs Skin: no lesions or rashes, dry and intact Neuro: While she is able to move all 4 extremities, she appears to have chorea like movements of her right arm and right leg. Extremities: moves all 4 extremities, is ambulatory, negative Lita?s sign Psyche: normal mood and affect. Objective Labs Result Diagrams: 05/20/19 18:20 05/20/19 18:20 Labs: Laboratory Results - last 24 hr 05/20/19 05/20/19 05/20/19 18:20 18:20 18:20 WBC 8.6 RBC 4.41 Hgb 13.9 Hct 40.3 MCV 91.4 MCH 31.6 MCHC 34.6 RDW 13.7 Plt Count 177 Neut % (Auto) 72.2 Lymph % (Auto) 12.6 L [place] % (Auto) 14.7 H Eos % (Auto) 0.3 L Baso % (Auto) 0.2 Neut # (Auto) 6200 Lymph # (Auto) 1100 [place] # (Auto) 1300 H Eos # (Auto) 0 Baso # (Auto) 0 PT 11.0 INR 1.0 APTT 28 Sodium 134 L Potassium 4.4 Chloride 100 Carbon Dioxide 23 BUN 33 H Creatinine 2.40 H Estimated GFR 19.3 L BUN/Creatinine Ratio 13.8 Glucose 109 Lactate Calcium 9.2 Total Bilirubin 0.9 AST 29 ALT 14 Alkaline Phosphatase 67 Troponin I < 0.012 Total Protein 7.0 Albumin 4.1 Globulin 2.9 Albumin/Globulin Ratio 1.4 TSH Prolactin 19.6 H Salicylates < 1.0 Urine Opiates Screen Ur Oxycodone Screen Urine Methadone Screen Acetaminophen < 10 L Ur Barbiturates Screen U Tricyclic Antidepress Ur Phencyclidine Scrn Ur Amphetamines Screen U Methamphetamines Scrn Ur MDMA Scrn (Ecstasy) U Benzodiazepines Scrn Urine Cocaine Screen U Marijuana (THC) Screen Ethyl Alcohol < 10 05/20/19 05/20/19 05/20/19 18:20 18:20 20:10 WBC RBC Hgb Hct MCV MCH MCHC RDW Plt Count Neut % (Auto) Lymph % (Auto) [place] % (Auto) Eos % (Auto) Baso % (Auto) Neut # (Auto) Lymph # (Auto) [place] # (Auto) Eos # (Auto) Baso # (Auto) PT INR APTT Sodium Potassium Chloride Carbon Dioxide BUN Creatinine Estimated GFR BUN/Creatinine Ratio Glucose Lactate 1.5 Calcium Total Bilirubin AST ALT Alkaline Phosphatase Troponin I Total Protein Albumin Globulin Albumin/Globulin Ratio TSH 1.84 Prolactin Salicylates Urine Opiates Screen Negative Ur Oxycodone Screen Negative Urine Methadone Screen Negative Acetaminophen Ur Barbiturates Screen Negative U Tricyclic Antidepress Negative Ur Phencyclidine Scrn Negative Ur Amphetamines Screen Negative U Methamphetamines Scrn Negative Ur MDMA Scrn (Ecstasy) Negative U Benzodiazepines Scrn Negative Urine Cocaine Screen Negative U Marijuana (THC) Screen Positive H Ethyl Alcohol Assessment & Plan Assessment and plan (1) Brain TIA: Problem details: Recent diagnosis 05/17, chronic, present on admission - occupational therapy to assess abnormal right-sided movements Current visit: Yes Status: Acute (2) Acute kidney injury: Problem details: Present on admission - Currently her creatinine is 2.4 with a baseline of 1.4. - She will have normal saline IV hydration at 125 mL/hour - Repeat BMP in the morning Current visit: Yes Status: Acute (3) Weakness: Problem details: - PT evaluation and assessment in the morning particularly focused on home safety. Current visit: Yes Status: Acute (4) UTI (urinary tract infection): Problem details: -she will see IV ceftriaxone 1 g daily -urine cultures are pending Qualifiers: Hematuria presence: without hematuria Urinary tract infection type: site unspecified Qualified Code(s): N39.0 - Urinary tract infection, site not specified Current visit: No Status: Acute (5) Dementia: Current visit: Yes Status: Acute (6) Parkinsonian syndrome: Problem details: -See TIA above Patient is admitted inpatient as her stay is anticipated to exceed 2 midnights. FEN: NS at 125 ml/hour, low sodium diet, chemistries in the am. VTE Prophylaxis: Heparin 5000 units bid Disposition: Likely will require rehab stay and/or dementia unit placement Code status: Full code Admission time: 75 minutes Meds reconciled: No Current visit: Yes Status: Acute (7) Frequent falls: Problem details: - See TIA above Current visit: No Status: Acute Time Spent With Patient Time with patient: 15-24 minutes Quality VTE Deep Vein Thrombosis/Pulmonary Embolism Present on Admission: No
[2019-05-20 23:00] VITALS: O2SAT 98
[2019-05-21] VITALS (8 sets, daily range): BP systolic 130–169; BP diastolic 83–111; PULSE 63–77; RESP 16–21; TEMP 36.6–37.5; O2SAT 94–97
[2019-05-21] MEDS: ONDANSETRON 4 MG/2 ML INJ IV ×2 (00:05→06:40)
[2019-05-21 05:17] LABS: Add Manual Diff / Slide Review NO; Basophils Absolute Auto 0 /uL (0-100); Basophils Percent Auto 0.4 % (0-2); Eosinophils Absolute Auto 100 /uL (0-450); Eosinophils Percent Auto 0.8 % (2-4); Hematocrit 37.3 % (36-46); Hemoglobin 12.8 g/dL (12.0-16.0); Lymphocytes Absolute Auto 1300 /uL (1100-4500); Lymphocytes Percent Auto 17.7 % (25-40); Mean Corpuscular HGB Conc 34.5 % (30-36); Mean Corpuscular Hemoglobin 31.5 PG (26-34); Mean Corpuscular Volume 91.2 fL (80-100); Monocytes Absolute Auto 1100 /uL (0-900); Monocytes Percent Auto 15.3 % (3-14); Neutrophils Absolute Auto 4700 /uL (1500-7000); Neutrophils Percent Auto 65.8 % (50-75); Platelet Count 160 X10^3/uL (150-400); Red Blood Cell Count 4.08 X10^6/uL (4.0-5.2); Red Cell Distribution Width 13.7 % (11.6-14.8); White Blood Cell Count 7.2 X10^3/uL (4.5-11.0)
[2019-05-21 05:20] LABS: Blood Urea Nitrogen 26 mg/dL (7-17); Calcium 8.5 mg/dL (8.4-10.2); Carbon Dioxide 25 mmol/L (22-32); Chloride 100 mmol/L (98-107); Estimated Glomerular Filt Rate 23.9 mL/min (>60); Glucose 92 mg/dL (80-110); HEMOLYSIS < 15 (0-50); Potassium 4.1 mmol/L (3.4-5.1); Sodium 133 mmol/L (137-145)
--- NOTE | 2019-05-21 06:50 | PC.NURSE ---
NOC Shift: Pt admitted for GLF's, UTI, encephelopathy. Per daughter POA pt has had increasing confusion, falls at home and more spastic motions of right arm, leg. Pt awake, oriented to self, sometimes place. Is impulsive, forgetful cannot remember how to use call light. Has continual rythmic spastic motion of right arm, leg and left leg even when pt is sleeping limbs are moving resembling [place] Pt not a good historian to medical history. Pt has very unsteady gait when OOB to commode, cannot follow direction well and is likely to fall w/o assistance. Cannot remember how to use walker. Bed alarm on for safety, CLAIMS COUNSEL outside room for close monitoring. VSS..
--- NOTE | 2019-05-21 09:58 | PT.IIE ---
Current Diagnoses Unspecified dementia without behavioral disturbance (05/20/19) Parkinson's disease (05/20/19) Transient cerebral ischemic attack, unspecified (05/20/19) Acute kidney failure, unspecified (05/20/19) Urinary tract infection, site not specified (05/20/19) Repeated falls (05/20/19) Weakness (05/20/19) Medical History (Last Reviewed 05/21/19 @ 02:38 by Peng Monzon DO) Essential hypertension (Acute) Fracture of left hip requiring operative repair (Acute) Frequent falls (Acute) Glaucoma (Acute) Parkinsonian syndrome (Acute) Syncope and collapse (Acute) Physical Therapy Inpatient Evaluation/Re-Eval M1 PT/OT-IP Prior Functional Status Start: 05/21/19 10:49 Freq: NEEDED Status: Active Protocol: Document 05/21/19 09:58 AB (Rec: 05/21/19 11:10 AB [id number]) Medical Review Prior Functional Status Medical History Reviewed Yes Communication able to make needs known Mobility and Gait pt stated that she is modified independent with all mobilities and ambulation using FWW but occasionally furniture cruises when she forgets to use her FWW. pt has h/o falls. Social History Household Members other Living Arrangements House Number of Floors (Floors) Two Floors Number of Stairs To Enter/Railing? pt has a ramp to enter but also uses the stairs to get into the house: 5 steps with L rail ascending has 12 steps with R rail descending to the basement laundry area Home Environment Standard Height Toilet,Walk in Shower Home Equipment Front Wheel Walker,Shower Seat with Backrest,Hand Held Shower,Grab Bars Near Toilet, Grab Bars In Shower Additional Social History Comment daughter present during PT session. pt's daughter lives in [place] and another daughter lives in [place]. daughter stated thast between her and her sister, they fly in every couple of weeks to stay with their mom and check on her. also stated that [facility] comes in one hour daily for 7x /week to assist pt. M2 PT-IP Current Condition Start: 05/21/19 10:49 Freq: NEEDED Status: Active Protocol: Document 05/21/19 09:58 AB (Rec: 05/21/19 11:10 AB [id number]) Physical Therapy Current Condition Current Condition Evaluation Date 05/21/19 Treatment Diagnosis UTI; brain TIA; difficulty in walking Onset Date 05/20/19 Precautions Other Precautions falls M3 PT-IP Subjective Start: 05/21/19 10:49 Freq: NEEDED Status: Active Protocol: Document 05/21/19 09:58 AB (Rec: 05/21/19 11:10 AB [id number]) Subjective Physical Therapy Visit Type Type Initial Evaluation Visit Start Time 09:58 Visit Stop Time 10:30 Total Visit Minutes 32 Number of ASSISTANT NURSE MANAGER Visits 0 Physical Therapy Visit Comments Patient Comments I want to go home Therapy Pain Assessment Pain Present Pain Present Denied Pain M4 PT-IP Mobility and Gait Start: 05/21/19 10:49 Freq: NEEDED Status: Active Protocol: Document 05/21/19 09:58 AB (Rec: 05/21/19 11:10 AB [id number]) PT-Bed Mobility Assessment Supine to Sit Supine to Sit Standby Assistance Sit to Supine Sit to Supine Standby Assistance PT-Transfer Assessment Transfers Transfer Destination Bed,Chair Transfer Technique Stand Step Pivot Transfer Ability Level of Assist Contact Guard Assistance,1 Person Assistance,Use of Upper Extremities Comments Mobility Comments pt requrested to use the toilet and ambulated towards the toile tusing FWW CGA to min A and cues. pt requires frequent one step commands to complete task and has decrease cognition affecting mobility and safety. pt instructed to pull brief down prior to using the toilet but instead of pulling down, pt was pulling brief up and requires constant cues to complete task. Gait Assessment Gait Gait Assistance Required: Contact Guard Assist,Minimum Assistance Distance (Feet) 40 Able to Maintain Weight Bearing Status Yes During Gait Assistive Devices Assistive Device Gait Belt,Front Wheeled Walker Orthotic/Prosthetic Devices or Brace: No Gait Deviations General Gait Pattern Decreased Stride Length, Decreased Feet Clearance, Lateral Trunk Lean Factors Limiting Gait Function Factors Limiting Gait Function Decreased Activity Tolerance, Decreased Strength,Poor Balance,Poor Safety Awareness Comments Gait Comments pt ambulated uisng FWW CGA to occasional min A especially with turns ~ 40 ft. pt with unsteady gait, increase R genu valgum. pt is also impulsive and has decrease safety awareness and requires cues for safety and to slow down. PT-Balance Assessment Sitting Balance and Reactions Static Sitting Balance Ability Good Dynamic Sitting Balance Ability Good Standing Balance and Reactions Static Standing Balance Ability Fair Dynamic Standing Balance Ability Fair Device Used FWW M5 PT-IP Objective Assessments Start: 05/21/19 10:49 Freq: NEEDED Status: Active Protocol: Document 05/21/19 09:58 AB (Rec: 05/21/19 11:10 AB [id number]) Orientation Orientation/Cognition Level of Alertness Alert Orientation Name,Age,Birthday,Place, Situation Safety Awareness Decreased Safety Awareness Gross Range of Motion Lower Extremity ROM Assessment Within Functional Limits Strength Lower Extremity Strength Assessment Right Impaired Knee 3+/5 Muscle Tone Comments Muscle Tone Comments pt has tremors on BUE/LE affecting mobility/ambulation M6 PT-IP Treatment Start: 05/21/19 10:49 Freq: NEEDED Status: Active Protocol: Document 05/21/19 09:58 AB (Rec: 05/21/19 11:10 AB [id number]) Physical Therapy Treatment Education Education Provided Safety M7 PT-IP Assessment and Plan Start: 05/21/19 10:49 Freq: NEEDED Status: Active Protocol: Document 05/21/19 09:58 AB (Rec: 05/21/19 11:10 AB [id number]) PT Summary Assessment and Plan Potential Rehabilitation Potential Fair Status of Condition at Evaluation Evolving Summary Impairments Pain,ROM,Strength,Balance, Coordination,Sensation,Tone, Cognition,Bed Mobility, Transfers,Gait,Activity Tolerance Assessment Summary pt requiring CGA to min A with moiblity but has decrease cognitive level affecting safety. pt at this time requires 24/7 assist and will need SNF rehab to iimprove mobility. informed pt's daughter Mery regarding pt's currenct mobility level and recommendation of 24/7 assist and daughter agreed . informed case specialist. will continue to assess progress. Goals Bed Mobility Goal Independent Transfer Goal Independent,Front Wheeled Walker Gait Goal Independent,Front Wheel Walker Gait Distance 150 Other Goals up/down 12 steps R rail descendng SBA ambulation without AD ~ 50 ft SBA Days to Meet Goals 5 Frequency of Treatment Frequency Of Treatment Once a Day Treatment Plan Physical Therapy Treatment Plan Bed Mobility Training,Transfer Training,Gait Training, Therapeutic Exercise,Balance Retraining,Discharge Planning, Neuromuscular Re-ed, Coordination Retraining,Manual Therapy Other Recommendations and Next Treatment ambulation, standing balance/ Focus tolerance Recommendations To Nursing Amount of Assist Needed 1 Person Assist Discharge Recommendations PT Discharge Recommendations SNF Rehab
[2019-05-21] MEDS: HEPARIN 5,000 UNIT/ML VIAL 5000 UNIT SUBCUT ×2 (10:35→20:46)
--- NOTE | 2019-05-21 10:55 | DI.MRI.S_ITS ---
PROCEDURE: MR HEAD/BRAIN WO CON INDICATIONS: r/o CVA TECHNIQUE: Non-contrast axial T1 spin echo, axial T2 fast spin echo, sagittal and axial FLAIR, coronal T2 fast spin echo, axial gradient echo, axial diffusion and ADC through the brain. COMPARISON: [facility], CT, CT HEAD/BRAIN WO CON, 05/20/2019, 19:37. [facility], MR, STROKE PROTOCOL, 02/21/2017, 8:50. FINDINGS: Image quality: Partially degraded by motion artifact. CSF spaces: Ventricles appear symmetric in size and shape. Basal cisterns are patent. No extra-axial fluid collections. Brain: No intracranial bleeds or mass effects. There is cerebral volume loss for age. There are periventricular and deep white matter chronic small vessel ischemic changes. Brainstem appears normal. Diffusion-weighted images demonstrate a 4 mm diameter focus of elevated signal intensity within the left posterior basal ganglia, which demonstrates low ADC map and mild FLAIR signal elevation. No chronic ischemic insults. Normal intravascular flow voids are present. Skull and face: Calvarial bone marrow is normal in signal. Orbits are normal. Sinuses: Sinuses and mastoids are clear. IMPRESSION: 1. 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 2. Volume loss and small vessel ischemic disease. Dictated by: Ketan Pelletier M.D. on 05/21/2019 at 11:51 Approved by: Ketan Pelletier M.D. on 05/21/2019 at 11:54
--- NOTE | 2019-05-21 13:16 | DI.ECHO.S_ITS ---
[facility]---------+ [facility] +---------+ : : [address] [place] : : : : [id number] : : : : Phone: [phone]+ Echocardiogram Report + + :Name: DES SILVERMAN I Study Date: 05/22/2019 Height: 70 in : :[facility] Exam Location: [facility] Weight: 161 lb : : Gender: Female BSA: 1.9 m2 : :: 1935 Age: 83 yrs BP: 136/103 mmHg: :Reason For Study: STROKE : : Performed By: Lukas Cavanaugh : :Referring: SHANNAN CLEMENTE : + + Interpretation Summary The left ventricle is normal in size. The ejection fraction is estimated to be 60-65%. There are no focal wall motion abnormalities. Diastolic function could not be accurately assessed due to contradictory data. The right ventricle is normal in size and function. The right ventricular systolic pressure is estimated to be at least 46 mmHg based on an estimated right atrial pressure of 8 mm Hg. The left atrium is severely dilated. Right atrial size is normal. There is mild mitral regurgitation. There is mild aortic regurgitation. There is no other significant valvular heart disease. The aortic root is normal size. Procedure: A two-dimensional transthoracic echocardiogram with color flow and Doppler was performed. The study quality was technically good. There is no prior echocardiogram noted for this patient. The patient was in normal sinus rhythm during the exam. Left Ventricle: The left ventricle is normal in size. There is normal left ventricular wall thickness. The ejection fraction is estimated to be 60-65%. There are no focal wall motion abnormalities. Diastolic function could not be accurately assessed due to contradictory data. Right Ventricle: The right ventricle is normal in size and function. Atria: The left atrium is severely dilated. Right atrial size is normal. The interatrial septum is intact with no evidence for an atrial septal defect. Mitral Valve: The mitral valve is normal in structure and function. There is mild mitral regurgitation. Aortic Valve: The aortic valve is trileaflet. The aortic valve opens well. There is mild aortic regurgitation. Tricuspid Valve: The tricuspid valve is normal in structure and function. There is mild tricuspid regurgitation. The right ventricular systolic pressure is estimated to be at least 46 mmHg based on an estimated right atrial pressure of 8 mm Hg. Pulmonic Valve: The pulmonic valve is normal in structure and function. There is trace pulmonic regurgitation. There is no other significant valvular heart disease. Great Vessels: The aortic root is normal size. The dimensions of the ascending aorta are normal. The pulmonary artery is normal size. The IVC is of normal diameter and collapses greater than 50% with a sniff. This suggests a low right atrial pressure of 3 mm Hg. Pericardium/ Pleura There is no pericardial effusion. There is no pleural effusion. MMode/2D Measurements & Calculations LVIDd: 5.1 cm LVOT diam: 2.3 cm LVIDs: 3.2 cm Ao root diam: 2.8 cm FS: 36.9 % asc Aorta Diam: 3.2 cm EPSS: 0.37 cm IVSd: 0.95 cm LVPWd: 0.94 cm LV melgar. diameter/BSA (cm/m^2): 2.7 LV sys. diameter/BSA (cm/m^2): 1.7 LA dimension: 3.8 cm RA long axis: 5.0 cm LA A2 area: 30.0 cm2 RA area: 15.3 cm2 LA A4 area: 25.0 cm2 RA vol: 40.2 ml LA length (vol): 5.7 cm RA : 21.1 ml/m2 LA vol: 112.0 ml IVC diam: 3.2 cm LA vol index: 58.8 ml/m2 Doppler Measurements & Calculations Ao V2 max: 119.2 cm/sec LVOT Max Stuart: 102.1 cm/sec Ao V2 mean: 79.8 cm/sec LV V1 max P.2 mmHg Ao max P.7 mmHg LV V1 VTI: 22.6 cm Ao mean P.9 mmHg SENDY(I,D): 3.8 cm2 Ao V2 VTI: 23.9 cm SENDY(V,D): 3.4 cm2 sev ratio: 0.95 SENDY indexed to BSA (cm^2/m^2): 2.0 AI P1/2t: 675.9 msec AI dec slope: 236.8 cm/sec2 MV E max stuart: 77.7 cm/sec TR max stuart: 309.5 cm/sec MV A max stuart: 116.4 cm/sec TR max P.3 mmHg MV E/A: 0.67 PA V2 max: 87.4 cm/sec Med Peak E' Stuart: 3.6 cm/sec PA V2 mean: 62.3 cm/sec E/E' med: 21.5 PA mean P.7 mmHg Lat Peak E' Stuart: 5.3 cm/sec PA pr(Accel): 21.6 mmHg E/E' lat: 14.8 PA Accel Time: 0.12 sec E/e' average: 18.1 MV dec time: 0.19 sec SV(LVOT): 90.4 ml Reading Physician:12:14 PM
--- NOTE | 2019-05-21 13:32 | PM.PN.1 ---
Subjective Subjective Date Patient Seen: 05/21/19 Interval history: The patient is an 83-year-old female for frequent falls. The patient is a somewhat unreliable historian. Her daughter was able to provide history which was corroborated with her HPI. The patient did have an MRI study done today. This confirmed a left basal ganglia infarct. Patient is somewhat restless, anxious to go home, but cooperative. She continues to have an unusual choreiform movement of her right arm and right leg. Exam Vital Signs (past 8 hours): - 05/21/19 07:37 05/21/19 08:45 05/21/19 11:58 Temperature 99.2 F 99 F Pulse Rate 66 75 Respiratory Rate 16 20 Blood Pressure 163/87 H 169/103 H Pulse Oximetry 96 96 94 Oxygen Delivery Method Room Air Oxygen Flow Rate 0 Narrative Exam Narrative: Anxious elderly female in no obvious distress Lungs: Clear to auscultation Cardiac exam: Regular rate and rhythm normal S1-S2 Abdomen: Soft nontender nondistended Extremities: No edema Neuro exam: Her cranial nerves are intact, speech is fluent patient is able to participate in exam. Motor strength is symmetric and equal sensation is grossly intact reflexes are brisk gait is not assessed Objective Labs Result Diagrams: 05/21/19 04:35 05/21/19 04:35 Labs: Laboratory Results - last 24 hr 05/20/19 05/20/19 05/20/19 18:20 18:20 18:20 WBC 8.6 RBC 4.41 Hgb 13.9 Hct 40.3 MCV 91.4 MCH 31.6 MCHC 34.6 RDW 13.7 Plt Count 177 Neut % (Auto) 72.2 Lymph % (Auto) 12.6 L [place] % (Auto) 14.7 H Eos % (Auto) 0.3 L Baso % (Auto) 0.2 Neut # (Auto) 6200 Lymph # (Auto) 1100 [place]win # (Auto) 1300 H Eos # (Auto) 0 Baso # (Auto) 0 PT 11.0 INR 1.0 APTT 28 Sodium 134 L Potassium 4.4 Chloride 100 Carbon Dioxide 23 BUN 33 H Creatinine 2.40 H Estimated GFR 19.3 L BUN/Creatinine Ratio 13.8 Glucose 109 Lactate Calcium 9.2 Total Bilirubin 0.9 AST 29 ALT 14 Alkaline Phosphatase 67 Troponin I < 0.012 Total Protein 7.0 Albumin 4.1 Globulin 2.9 Albumin/Globulin Ratio 1.4 TSH Prolactin 19.6 H Nasal Screen MRSA (PCR) Salicylates < 1.0 Urine Opiates Screen Ur Oxycodone Screen Urine Methadone Screen Acetaminophen < 10 L Ur Barbiturates Screen U Tricyclic Antidepress Ur Phencyclidine Scrn Ur Amphetamines Screen U Methamphetamines Scrn Ur MDMA Scrn (Ecstasy) U Benzodiazepines Scrn Urine Cocaine Screen U Marijuana (THC) Screen Ethyl Alcohol < 10 05/20/19 05/20/19 05/20/19 18:20 18:20 20:10 WBC RBC Hgb Hct MCV MCH MCHC RDW Plt Count Neut % (Auto) Lymph % (Auto) [place] % (Auto) Eos % (Auto) Baso % (Auto) Neut # (Auto) Lymph # (Auto) [place] # (Auto) Eos # (Auto) Baso # (Auto) PT INR APTT Sodium Potassium Chloride Carbon Dioxide BUN Creatinine Estimated GFR BUN/Creatinine Ratio Glucose Lactate 1.5 Calcium Total Bilirubin AST ALT Alkaline Phosphatase Troponin I Total Protein Albumin Globulin Albumin/Globulin Ratio TSH 1.84 Prolactin Nasal Screen MRSA (PCR) Salicylates Urine Opiates Screen Negative Ur Oxycodone Screen Negative Urine Methadone Screen Negative Acetaminophen Ur Barbiturates Screen Negative U Tricyclic Antidepress Negative Ur Phencyclidine Scrn Negative Ur Amphetamines Screen Negative U Methamphetamines Scrn Negative Ur MDMA Scrn (Ecstasy) Negative U Benzodiazepines Scrn Negative Urine Cocaine Screen Negative U Marijuana (THC) Screen Positive H Ethyl Alcohol 05/20/19 05/21/19 05/21/19 21:45 04:35 04:35 WBC 7.2 RBC 4.08 Hgb 12.8 Hct 37.3 MCV 91.2 MCH 31.5 MCHC 34.5 RDW 13.7 Plt Count 160 Neut % (Auto) 65.8 Lymph % (Auto) 17.7 L [place] % (Auto) 15.3 H Eos % (Auto) 0.8 L Baso % (Auto) 0.4 Neut # (Auto) 4700 Lymph # (Auto) 1300 [place] # (Auto) 1100 H Eos # (Auto) 100 Baso # (Auto) 0 PT INR APTT Sodium 133 L Potassium 4.1 Chloride 100 Carbon Dioxide 25 BUN 26 H Creatinine 2.00 H Estimated GFR 23.9 L BUN/Creatinine Ratio 13.0 Glucose 92 Lactate Calcium 8.5 Total Bilirubin AST ALT Alkaline Phosphatase Troponin I Total Protein Albumin Globulin Albumin/Globulin Ratio TSH Prolactin Nasal Screen MRSA (PCR) Negative for mrsa Salicylates Urine Opiates Screen Ur Oxycodone Screen Urine Methadone Screen Acetaminophen Ur Barbiturates Screen U Tricyclic Antidepress Ur Phencyclidine Scrn Ur Amphetamines Screen U Methamphetamines Scrn Ur MDMA Scrn (Ecstasy) U Benzodiazepines Scrn Urine Cocaine Screen U Marijuana (THC) Screen Ethyl Alcohol Assessment & Plan Assessment & Plan narrative: 1. 83-year-old female with a history of hypertension, admitted to the hospital for frequent falls. Neurological workup confirmed left basal ganglia infarct. The patient underwent an MRI of her brain today. She had carotid Dopplers during her last admission. The patient will have a cardiac echo, fasting lipid profile, and be started on an anti-platelet agent. Patient will start Plavix 75 mg daily given previous use of aspirin at home. 2. Hypertension, present on admission. Given recent infarct will defer aggressive treatment of her blood pressure. Will continue her usual home med of lisinopril 5 mg b.i.d.. 3. Urinary tract infection, patient on ceftriaxone currently previously on TMP sulfa. The patient will complete a 7 day course, will discharge on oral medication. 4. Acute renal failure, likely related to Bactrim. Hold her Bactrim. Will treat her with ceftriaxone. Will continue IV hydration. Will follow up labs tomorrow. 5. Dementia, present on admission 6. Parkinson's, syndrome, according to the daughter the patient does not have a diagnosis of Parkinson's. She is not on treatment for this as well. Plan today, physical therapy occupational therapy and speech therapy consult. Anticipate the patient will need nursing home rehabilitation prior to returning home. Will continue heparin for DVT prophylaxis. Quality VTE Deep Vein Thrombosis/Pulmonary Embolism Present on Admission: No
--- NOTE | 2019-05-21 14:05 | SLP.IPNOTE ---
Speech Therapy orders received. Patient found to be agitated and refused speech evaluation at this time. Spoke with patient's daughter who reports she has observed occasional slurring of words over the past few weeks, but this has since resolved. She also reports patient had some difficulty swallowing pills this am, but was eventually able to get them down. Swallow screen completed with water only as patient refused food trials. No swallowing difficulty observed with consecutive sips of water from straw. Spoke with patient briefly and noted difficulty with word finding and impulsivity with attempts to get out of chair twice. Further evaluation needed, ASE CERTIFIED TECHNICIAN to re-attempt evaluation in the am.
[2019-05-21] MEDS: SODIUM CHLORIDE 0.9% 1,000 ML 100 ML IV ×2 (14:13→22:32)
[2019-05-21] MEDS: CLOPIDOGREL 75 MG TABLET PO (14:13)
--- NOTE | 2019-05-21 14:54 | OT.IP.EVAL ---
Current Diagnoses Unspecified dementia without behavioral disturbance (05/20/19) Parkinson's disease (05/20/19) Transient cerebral ischemic attack, unspecified (05/20/19) Acute kidney failure, unspecified (05/20/19) Urinary tract infection, site not specified (05/20/19) Repeated falls (05/20/19) Weakness (05/20/19) Past Medical History (Last Reviewed 05/21/19 @ 02:38 by Peng Monzon DO) Essential hypertension (Acute) Fracture of left hip requiring operative repair (Acute) Frequent falls (Acute) Glaucoma (Acute) Parkinsonian syndrome (Acute) Syncope and collapse (Acute) Occupational Therapy Inpatient Evaluation/Re-Eval M1 PT/OT-IP Prior Functional Status Start: 05/21/19 10:49 Freq: NEEDED Status: Active Protocol: Document 05/21/19 14:54 MONY (Rec: 05/21/19 15:39 MONY [id number]) Medical Review Prior Functional Status Medical History Reviewed Yes Communication WNL, but conversation confused and repetitive Mobility and Gait Pt stated that she is modified independent with ambulation using FWW but occasionally furniture cruises when she forgets to use her FWW. Note pt has h/o multiple falls at home. Activities of Daily Living and IADL's Pt indep with eating, grooming , dressing, bathing, toileting by her report. Per chart notes pt has [facility] [place] caregiver 1 hr/day,7 days/week who assists with cleaning, grocery shopping and laundry which is in lower level of home (full flight of stairs). Prior Functional Level (Other details) Pt states she no longer drives. Social History Household Members other Living Arrangements House Number of Floors (Floors) Two Floors Number of Stairs To Enter/Railing? pt has a ramp to enter but also uses the stairs to get into the house: 5 steps with L rail ascending has 12 steps with R rail descending to the basement laundry area Home Environment Standard Height Toilet,Walk in Shower Home Equipment Front Wheel Walker,Shower Seat with Backrest,Hand Held Shower,Grab Bars Near Toilet, Grab Bars In Shower Employment Status Retired Additional Social History Comment Daughter, Mery, present during PT session. Pt's daughter lives in [place] and another daughter lives in [place]. Daughter stated that between she and her sister, they fly in every couple of weeks to stay with their mom and check on her. M2 OT-IP Current Condition Start: 05/21/19 13:37 Freq: Status: Active Protocol: Document 05/21/19 14:54 PJM (Rec: 05/21/19 15:39 PJ [id number]) Occupational Therapy Current Condition Current Condition Evaluation Date 05/21/19 Treatment Diagnosis decr'd cognition,self care, mobility w/DX:small L post basal ganglia infarct Diagnosis Onset Date 05/20/19, also has dx of UTI Post Operative Precautions Other Precautions high fall risk, confusion, impulsivity M3 OT- IP Subjective and Pain Start: 05/21/19 13:37 Freq: Status: Active Protocol: Document 05/21/19 14:54 PJM (Rec: 05/21/19 15:39 PJ [id number]) OT- Subjective Occupational Therapy Visit Type Type Initial Evaluation Visit Start Time 14:20 Visit Stop Time 14:54 Total Visit Minutes 34 Occupational Therapy Visit Comments Patient Comments I brought this chair from my house. This is my furniture. Patient/Caregiver Goals none verbalized this session due to confusion OT Pain Assessment Pain When Pain Assessed At Rest Pain Present Pain Present Denied Pain M4 OT- IP ADL's Start: 05/21/19 13:37 Freq: Status: Active Protocol: Document 05/21/19 14:54 PJM (Rec: 05/21/19 15:39 PJ [id number]) OT [id number] General Evaluation Self-Feeding Ability Standby Assistance Comments OT Self-Feeding Comments needs set up to open containers due to RUE incoordination, choreiform movements OT ADL-Grooming General Evaluation Grooming Ability Standby Assistance Areas Needing Assistance Combing/Brushing Hair,Face Washing Comments OT Grooming Comments after set up in chair OT ADL-Oral Care Comments Oral Care Comments to be assessed OT ADL-Dressing Comments OT Dressing Comments to be assessed OT ADL-Toileting Comments OT Toileting Comments to be assessed, per P.T. notes , pt confused about sequence of task and did not pull down pants prior to using toilet OT ADL-Bathing Bathing Type Bathing Type Shower Comments OT Bathing Comments [employer] [employer] [employer] provided min assist and max verbal cues for shower today; poor safety awareness reported M5 OT- IP IADL's Start: 05/21/19 13:37 Freq: Status: Active Protocol: Document 05/21/19 14:54 PJM (Rec: 05/21/19 15:39 [facility] [id number]) OT-Instrumental Activities of Daily Living Deficits IADL Deficits Identified Deficits Home Safety Awareness Awareness of Need for Assistance at Home Decreased Awareness Ability to Problem Solve Emergency Unable to Problem Solve Situations Home Safety Comments Recommend pt have supervision/ assist with all IADLS at present due to confusion Medication Management Medication Management Caregiver Provides Supervision Medication Management Comments pt needs assist with all medication managment due to confusion and memory deficits Money Management Money Management Comments pt states her daughter does all bill paying Meal Preparation Meal Preparation Comments pt not safe for hot meal preparation using stove or oven at present due to memory deficits Regional Business Manager Regional Business Manager Caregiver Provides Assist Regional Business Manager Comments [facility] [place] caregiver Driving Driving Caregiver Provides Assist Driving Comments Pt not safe to drive at present, caregiver assists M6 OT- IP Functional Cognition Start: 05/21/19 13:37 Freq: Status: Active Protocol: Document 05/21/19 14:54 PJ (Rec: 05/21/19 15:39 [facility] [id number]) Cognitive Factors Limiting Selfcare Function Cognitive Ability Level of Alertness Alert,Confusional State Patient Orientation Name,Age,Birthday,Place Attention Span Ability Capable of Focused Attention Ability to Follow Commands Able to Follow One Step Commands Memory Description Immediate Impaired,Short Term Impaired,Working Impaired Safety Awareness Decreased Recall of Precautions,Underestimates Need for Assistance Problem Solving Ability Unable to Identify Errors, Needs Assist to Identify Solutions Executive Function Ability Unable to Filter Distractions, Unable to Make Plans,Unable to Organize Plans,Unable to Remember Details,Unable to Integrate Past Experience With Present Action Abstract Thinking Ability Unable to Draw Logical Conclusions,Unable to Be Adaptable in Thinking Cognitive Tests SLUMS Pt scored 7/30 (norm is 27/30) indicating significant cognitive impairment. Pt had difficulty with orientation, immediate, short term and working memory tasks, mental math. She recalls 1/4 facts about short paragraph read to her. She is unable to place numbers or hands correctly on clock drawing Cognitive Comments Cognitive Assessment Comments Pt has no insight into current deficits. She is restless and impulsive which increases fall risk. OT- Vision and Hearing OT- Hearing Assessment OT- Hearing Assessment WFL OT- Vision Assessment Visual Acuity WFL,Glasses For Reading Visual Attentiveness WFL Occular Pursuits WFL Visual Spacial Neglect Not Applicable M7 OT- IP Mobility and Balance Start: 05/21/19 13:37 Freq: Status: Active Protocol: Document 05/21/19 14:54 PJM (Rec: 05/21/19 15:39 PJM [id number]) OT-Transfer Assessment Comments Mobility Comments see P.T. notes OT- Gait Assessment Comments Gait Ability Comments see P.T. notes OT- Balance Assessment Sitting Balance and Reactions Static Sitting Balance Ability Good M8 OT- IP Objective Assessments Start: 05/21/19 13:37 Freq: Status: Active Protocol: Document 05/21/19 14:54 PJM (Rec: 05/21/19 15:39 PJM [id number]) OT Gross Range of Motion Upper Extremity Range of Motion Assessment Within Functional Limits ROM Impairments RUE choreiform noted with pt banging armrest of chair and nearby bedrail and seemingly unaware of this OT Strength Upper Extremity Strength Assessment Within Functional Limits Hand Desizing Machine Operator Strength Hand Dominance Right Comments Strength Comments No focal weakness noted IN BUE 's OT- Coordination Assessment Upper Extremity Finger to Nose Test Right UE Impaired Finger Tapping Test Right UE Impaired Comments Coordination Comments Pt's involuntary choreiform movements interfere with gross and fine coordination. Interestly, pt's functional intentional movements for tasks such as handwriting are more controlled with cursive handwriting 90% legible. OT-Muscle Tone Assessment Muscle Tone WNL Yes OT Sensation Assessment Comments Summary Comments Pt detects lt touch in BUE Edema Edema Absent M9 OT- IP Assessment and Plan Start: 05/21/19 13:37 Freq: Status: Active Protocol: Document 05/21/19 14:54 PJM (Rec: 05/21/19 15:39 PJM [id number]) OT Summary Assessment and Plan Potential Analytic Complexity at Evaluation Low Summary OT Impairments Coordination,Functional Cognition,Functional Mobility, Grooming,Dressing,Toileting, Bathing,Toilet Transfers, Shower Transfers Assessment Summary Low complexity OT assessment completed on this 83 yr old female admitted after multiple falls at home. Pt found to have small subacute infarct in L posterior basal ganglia, UTI, ELVIS. Pt presents with significant cognitive impairment, scoring 7/30 on SLUMS. Norm is 27/30. See details above . Pt also has unusual RUE>RLE choreiform movements which result in performance deficits in all functional mobility, transfers, standing grooming, dressing, bathing and toileting. Her cognitive deficits, poor insight and impulsivity combined with RUE/ RLE incoordination make her a high fall risk. Pt is not safe to return home alone and currently needs close supervision/assist during all waking hours. Recommend SNF at discharge for further rehab services vs home with 24/7 assistance and services. Goals Self-Feeding Goal Independent Grooming Goal Standby Assistance Dressing Goal Standby Assistance Toileting Goal Standby Assistance Bathing Goal Standby Assistance Toilet Transfer Goal Standby Assistance Shower Transfer Goal Contact Guard Assistance OT-Other Goals Grooming to be done standing at the sink with no loss of balance. Days to Meet Goals 5 Frequency of Treatment Frequency Of Treatment Once a Day Treatment Plan OT Treatment Plan ADL Training,Functional Cognition Training,Functional Mobility,Patient/Family Education,Discharge Planning Discharge Recommendations OT Discharge Recommendations SNF Rehab Other Discharge Recommendations vs home with 24/7 assist pending progress here
--- NOTE | 2019-05-21 16:48 | PC.NURSE ---
Addendum entered by Nidia Javier R.N. 05/21/19 23:27: 2215 - Pt impulsive, attempting to get out of bed. Accidentally dislodged IV. Linen and gown change r/t bleeding. Coban applied. Assist to BSC. Returned to bed. Bed alarm on. Addendum entered by Nidia Javier R.N. 05/21/19 21:57: 2145 - Pt continues to be confused. Does not use call light. SBA to bedside commode. Last effort to use bathroom, pt every unsteady and unsafe in the confined space of the bathroom. Reoriented to place and situation. Reinforced safety and call light use. Bed alarm on. Original Note: 1600 - Attempt to reorient pt to place and situation. States that she isn't, going to sleep in this bar. Mildly irritable with inability to return home today. Discussed treatment plan, safety and call light use. Assist to bathroom. Unsteady gait, needed encouragement to continue walker use. Pt returned to chair. Discussed echocardiogram. Denies pain. Denies nausea. Call light in reach. Chair alarm on.
[2019-05-21] MEDS: CEFTRIAXONE 1 GM/50 ML FROZ.PIGGY IV (20:46)
[2019-05-22] VITALS (7 sets, daily range): BP systolic 136–210; BP diastolic 83–110; PULSE 60–97; RESP 14–20; TEMP 36.6–37.1; O2SAT 93–96
[2019-05-22] MEDS: ONDANSETRON 4 MG/2 ML INJ IV (00:53)
[2019-05-22] MEDS: ACETAMINOPHEN 325 MG TABLET 650 MG PO ×2 (00:54→14:20)
[2019-05-22 05:20] LABS: BUN Creatinine Ratio 16.9 (6-22); Blood Urea Nitrogen 27 mg/dL (7-17); Calcium 8.7 mg/dL (8.4-10.2); Carbon Dioxide 25 mmol/L (22-32); Chloride 102 mmol/L (98-107); Estimated Glomerular Filt Rate 30.9 mL/min (>60); Glucose 90 mg/dL (80-110); HEMOLYSIS < 15 (0-50); Potassium 4.5 mmol/L (3.4-5.1); Sodium 134 mmol/L (137-145)
[2019-05-22 05:22] LABS: Cholesterol 166 mg/dL (140-199); HDL Cholesterol 57 mg/dL (40-60); LDL Cholesterol Calculated 97 mg/dL (<100); Triglycerides 61 mg/dL (35-150); VLDL Cholesterol Calculated 12 mg/dL (2-30)
--- NOTE | 2019-05-22 06:26 | PC.NURSE ---
NOC Shift: Pt increasingly confused and agitated when given direction to prevent falls. Impulsive and unable to orient to situation. Oriented to self only. Very unsteady gait when OOB. Complaints only of slight headache medicated with Tylenol. VSS. IVF's continue. Floor care status.
[2019-05-22] MEDS: HEPARIN 5,000 UNIT/ML VIAL 5000 UNIT SUBCUT ×2 (08:26→20:45)
[2019-05-22] MEDS: CLOPIDOGREL 75 MG TABLET PO (08:26)
--- NOTE | 2019-05-22 08:53 | CM.IDA ---
Initial DCP Assessment Note: Pt is an 83 yo female, resident of [place]. Pt presents after a confirmed CVA per MRI. PCP: Rahat Espinosa Payer: Medicare/[facility] Reviewed chart; to include Gina Barone's note, ED DITCHER, discussing dtr's concerns, from Gina's note: She had very specific information about he past week which had included frequent falls, weakness, failing memory, recent ED visit and an untreated UTI. Daughter stated that PCP told pt that it is time to be placed in a facility where she can get more care, but pt is not willing. Met w/pt and her dtr Tricia Sunday05.21.19, pt gets increasingly agitated throughout visit. Attempted to step out of room w/ Tricia but this did not help pt's agitation, it exacerbated it. CARRIE Gomez available to assist w/redirecting pt. Pt has been living in the same home for 40+ years. Her 3 years ago at a memory care facility, from Parkinson's. Dtr Tricia lives in [place] and dtr Becky lives in [place], they take turns visiting pt every 6 weeks to assist w/errands, shopping and preparing meals. Pt will only tolerate one hour of caregiving daily from [facility] [place]. Dtr Tricia admits pt's cognition has declined in the last year, she often tells family I want to go home even though she has remained in the same home for 40 yrs. Pt has increasing forgetfulness and dtr unsure if she is managing medications well. Dtrs have attempted to secure alf placement and pt has been resistant to leaving her home. This DITCHER attempted [facility] and [facility], memory care units, yesterday, no beds available on the locked memory care units, only availability in assisted living. Pt will benefit from a locked unit. She has been to [facility] for a brief stay in the past and asked her neighbors to come pick her up. Placed call to Keyla at [facility] this morning; they have a female bed available. Will discuss POC w/dtrs today. Bindu Watt DITCHER Discharge Planning/Care Management Advanced directive, confirm from FAMILY Start: 05/20/19 22:02 Freq: Q24H Status: Complete Protocol: Document 05/21/19 11:00 LENNOX (Rec: 05/21/19 11:01 LENNOX [id number]) Advance Directive, confirm on record Time 11:01 Person contacted Becky Luna received No Advanced directive available on record Yes CM Discharge Assessment Start: 05/22/19 08:34 Freq: Status: Active Protocol: Document 05/22/19 08:34 [email or web address] (Rec: 05/22/19 08:53 [id number]) Discharge Planning Assessment Assigned Battery Tester BRUNILDA Mathews DPOA/Assigned Designee Name [place] dtr Contact Information Tricia: [phone] Becky: [phone], Advance Directives? Yes History Provided By Family Member Prior Living Arrangements House Household Members none Independent with ADL's Yes Is patient alert and oriented? No: Parkinsons Dementia Barriers to Discharge Yes Whiteboard Updated in Patient Room with Yes name and ext. # of Battery Tester
[2019-05-22] MEDS: LISINOPRIL 10 MG TABLET PO (09:19)
--- NOTE | 2019-05-22 09:19 | P.PN_ITS ---
Subjective Subjective Date Patient Seen: 05/22/19 Interval history: The patient is an 83-year-old female with a history of hypertension, chronic kidney disease, dementia, and frequent falls. The patient was seen in the hospital on 05/16 for presumed TIA. She had right upper extremity weakness that completely resolved. She was sent home. Unfortunately while at home she was unable to ambulate and stand without falling. She was brought back to the hospital for further evaluation. The patient did have a head CT which was negative. An MRI confirmed a small left basal ganglia infarc t. The patient has been referred by her PCP to Neurology for evaluation of Parkinson's disease. She has not seen a neurologist and has not been given that diagnosis. In addition she was recently started on TMP sulfa fall for a UTI. This may have led to some minimal ATN with an elevation of her creatinine to 2.0 on admission. This has since resolved. Today she is awake alert and appropriate. She previously had some choreiform movement of her right upper extremity and right lower extremity which has improved. She has no specific complaints. She is agreeable to going to rehab/SNF at discharge. Exam Vital Signs (past 8 hours): - 05/22/19 03:55 Temperature 98.2 F Pulse Rate 72 Respiratory Rate 18 Blood Pressure 136/103 H Pulse Oximetry 95 Oxygen Delivery Method Room Air Oxygen Flow Rate 0 Narrative Exam Narrative: Pleasant female resting comfortably in no obvious distress HEENT: Normocephalic atraumatic, extraocular muscles are intact, no facial droop, her tongue is midline Lungs: Clear to auscultation Cardiac exam: Regular rate and rhythm normal S1-S2 Abdomen: Soft nontender nondistended Extremities: No edema Neuro exam: The patient is awake and alert, she knows she is at [facility], she is somewhat vague about why she is here she does acknowledge that she has had a stroke. Her cranial nerves are intact. Her strength is symmetric and equal. Her sensation is grossly intact. She does have a mild pronator drift she has dysmetria as well. Her speech is clear and fluent. Objective Labs Result Diagrams: 05/21/19 04:35 05/22/19 04:55 Labs: Laboratory Results - last 24 hr 05/22/19 05/22/19 04:55 04:55 Sodium 134 L Potassium 4.5 Chloride 102 Carbon Dioxide 25 BUN 27 H Creatinine 1.60 H Estimated GFR 30.9 L BUN/Creatinine Ratio 16.9 Glucose 90 Calcium 8.7 Triglycerides 61 Cholesterol 166 LDL Cholesterol, Calc 97 VLDL Cholesterol 12 HDL Cholesterol 57 Assessment & Plan Assessment & Plan narrative: Impression 1. 83-year-old female admitted to the hospital with frequent falls and a recent TIA now found to have a subacute left basal ganglia infarct. The patient will be continued on Plavix as she apparently had this episode while on aspirin. A fasting lipid profile will be obtained, the patient is on DVT prophylaxis. Cardiac echo is pending. The patient will continue with physical therapy, occupational therapy, and speech therapy. The plan ultimately is for her to be discharged to senior living for ongoing rehabilitation. 2. Hypertension, present on admission, will continue her lisinopril. She was previously on 10 mg a day. Will resume her 10 mg a day however she may need additional dosing depending on her blood pressure. Given her recent CVA will not be overly aggressive but will resume her usual medication. 3. Glaucoma, continue home medication 4. Chronic kidney disease, the patient presented with acute on chronic renal failure, suspect this was related to ATN from her TMP sulfa. The TMP sulfa has since been held. Her creatinine is 1.6 which is near her baseline of 1.4-1.5. No further therapy at this time. Will defer nephro toxic agents. 5. Urinary tract infection, patient with known E coli which is pansensitive. Will discontinue ceftriaxone. Will start her on levofloxacin 250 daily. Patient should be treated for total of 5 days and then no additional antibiotics. 6. Question dementia, patient is not on treatment for this. Ideally she will have neurological evaluation as an outpatient but previously she had Refused. Patient will continue on DVT prophylaxis, she is a full code, will discontinue telemetry at this time, and anticipate discharge home once a bed has been obtained within the next day or so. Quality VTE Deep Vein Thrombosis/Pulmonary Embolism Present on Admission: No
--- NOTE | 2019-05-22 11:25 | OT.IP.TRT ---
Current Diagnoses Unspecified dementia without behavioral disturbance (05/20/19) Parkinson's disease (05/20/19) Transient cerebral ischemic attack, unspecified (05/20/19) Acute kidney failure, unspecified (05/20/19) Urinary tract infection, site not specified (05/20/19) Repeated falls (05/20/19) Weakness (05/20/19) Occupational Therapy Treatment Note M2 OT-IP Current Condition Start: 05/21/19 13:37 Freq: Status: Active Protocol: Document 05/21/19 14:54 PJM (Rec: 05/21/19 15:39 PJM [id number]) Occupational Therapy Current Condition Current Condition Evaluation Date 05/21/19 Treatment Diagnosis decr'd cognition,self care, mobility w/DX:small L post basal ganglia infarct Diagnosis Onset Date 05/20/19, also has dx of UTI Post Operative Precautions Other Precautions high fall risk, confusion, impulsivity M3 OT- IP Subjective and Pain Start: 05/21/19 13:37 Freq: Status: Active Protocol: Document 05/22/19 11:25 PJM (Rec: 05/22/19 16:55 PJ [id number]) OT- Subjective Occupational Therapy Visit Type Type Treatment Note Visit Start Time 10:50 Visit Stop Time 11:25 Total Visit Minutes 35 Notes Pt's daughter here at beginning of session. Occupational Therapy Visit Comments Patient Comments What are we going to do now? Patient/Caregiver Goals pt unable to verbalize goal due to confusion OT Pain Assessment Pain When Pain Assessed After Treatment Pain Present Pain Present Denied Pain M4 OT- IP ADL's Start: 05/21/19 13:37 Freq: Status: Active Protocol: Document 05/22/19 11:25 PJM (Rec: 05/22/19 16:55 PJ [id number]) OT EHJ-Stlk-Qlebjog General Evaluation Self-Feeding Ability Independent Areas Needing Assistance Drinking From Cup/Glass Comments OT Self-Feeding Comments with lid and straw, better motor control of RUE today with only minimal choreiform movements OT ADL-Grooming General Evaluation Grooming Ability Contact Guard Assistance Areas Needing Assistance Combing/Brushing Hair,Face Washing Comments OT Grooming Comments standing at sink with FWW OT ADL-Oral Care General Eval Areas of Assistance Brushing Teeth Devices Oral Care Devices Toothbrush Comments Oral Care Comments standing at sink with FWW, pt sequenced set up of task appropriately OT ADL-Dressing General Eval Lower Body Dressing Ability Standby Assistance Areas Needing Assistance Underpants/Brief,Pants/Shorts, Socks Comments OT Dressing Comments close CGA for standing balance when tying drawstring on pants OT ADL-Toileting General Evaluation Toileting Ability Standby Assistance Areas Needing Assistance Manage Clothing,Perform Perineal Hygiene Comments OT Toileting Comments Close CGA for standing balance M6 OT- IP Functional Cognition Start: 05/21/19 13:37 Freq: Status: Active Protocol: Document 05/22/19 11:25 PJM (Rec: 05/22/19 16:55 [facility] [id number]) Cognitive Factors Limiting Selfcare Function Cognitive Ability Level of Alertness Confusional State Patient Orientation Name,Place Attention Span Ability Capable of Focused Attention, Capable of Sustained Attention Ability to Follow Commands Able to Follow One Step Commands Memory Description Immediate Impaired,Short Term Impaired Safety Awareness Decreased Recall of Precautions,Decreased Ability to Apply Precautions, Underestimates Need for Assistance Problem Solving Ability Unable to Identify Errors, Needs Assist to Identify Solutions Executive Function Ability Unable to Filter Distractions, Unable to Make Plans,Unable to Organize Plans,Unable to Remember Details,Unable to Integrate Past Experience With Present Action Abstract Thinking Ability Unable to Draw Logical Conclusions,Unable to Be Adaptable in Thinking Cognitive Comments Cognitive Assessment Comments Pt pleasant and cooperative this session. Poor awareness of surroundings and obstacles when walking in sher with FWW. M7 OT- IP Mobility and Balance Start: 05/21/19 13:37 Freq: Status: Active Protocol: Document 05/22/19 11:25 PJM (Rec: 05/22/19 16:55 [facility] [id number]) OT-Transfer Assessment Sit to and From Stand Sit to and from Stand Contact Guard Assistance,1 Person Assistance Transfers Transfer Ability Contact Guard Assistance,1 Person Assistance Technique Transfer Destination Chair,Toilet Transfer Technique Stand Step Pivot Devices Transfer Assistive Devices Gait Belt,Front Wheeled Walker Comments Mobility Comments Pt unsteady on feet even with FWW OT- Gait Assessment Gait Gait Assistance Required: Contact Guard Assist Distance (Feet) 150 Assistive Devices Assistive Device Gait Belt,Front Wheeled Walker Comments Gait Ability Comments Pt needs close CGA during ambulation with FWW; her RLE appears more unstable than L with decreased coordination with foot placement. Pt sometimes takes very large step past front of walker with R foot and occasionally crosses her feet. OT- Balance Assessment Sitting Balance and Reactions Static Sitting Balance Ability Good Dynamic Sitting Balance Ability Good Standing Balance and Reactions Static Standing Balance Ability Fair Dynamic Standing Balance Ability Poor M9 OT- IP Assessment and Plan Start: 05/21/19 13:37 Freq: Status: Active Protocol: Document 05/22/19 11:25 PJM (Rec: 05/22/19 16:55 PJM [id number]) OT Summary Assessment and Plan Potential Rehabilitation Potential Fair Summary OT Impairments Strength,Balance,Coordination, Sensation,Functional Cognition ,Functional Mobility,Grooming, Dressing,Toileting,Bathing, Toilet Transfers,Shower Transfers Progress Towards Goals Slow Progress due to Cognition Assessment Summary Pt demonstrating increased participation in basic self care tasks as described above. Improved RUE coordination and functional use with significant decrease in choreiform type movements. Cognitive deficits with poor insight and judgement and impulsivity continue to make pt a high fall risk when combined with her decreased balance. Provided education to pt's daughter re: pt's current abilities and answered her questions about d/c options. Per DATA ANALYST REPORT WRITER chart notes, d/c plan is now memory care unit. Pt would benefit from OT services there to maximize self care independence/safety in new setting. Goals Self-Feeding Goal Independent Grooming Goal Standby Assistance Dressing Goal Standby Assistance Toileting Goal Standby Assistance Bathing Goal Standby Assistance Toilet Transfer Goal Standby Assistance Shower Transfer Goal Contact Guard Assistance OT-Other Goals Grooming to be done standing at the sink with no loss of balance. Days to Meet Goals 4 Frequency of Treatment Frequency Of Treatment Once a Day Treatment Plan OT Treatment Plan ADL Training,Functional Cognition Training,Functional Mobility,Patient/Family Education,Discharge Planning Discharge Recommendations Other Discharge Recommendations Memory Care Unit
--- NOTE | 2019-05-22 12:47 | ST.IPIE ---
Visit Care Team Role Provider Type Rahat Espinosa MD Family Provider Physician Primary Care Provider Specialty: Family Practice Address: [address], [address], [place], [address] Email: Peng Monzon DO Emergency Provider Physician Specialty: Emergency Medicine Address: [address] [place] [address], [address] Email: [email or web address] MICHEAL Juarez Admit Provider Physician Attending Provider Specialty: Internal Medicine Address: [address] [place] [address], [address] Email: [email or web address] Current Diagnoses Unspecified dementia without behavioral disturbance (05/20/19) Parkinson's disease (05/20/19) Transient cerebral ischemic attack, unspecified (05/20/19) Acute kidney failure, unspecified (05/20/19) Urinary tract infection, site not specified (05/20/19) Repeated falls (05/20/19) Weakness (05/20/19) Past Medical History (Last Reviewed 05/21/19 @ 02:38 by Peng Monzon DO) Essential hypertension (Acute Medical) Fracture of left hip requiring operative repair (Acute Medical) Frequent falls (Acute Medical) - See TIA above Glaucoma (Acute Medical) Parkinsonian syndrome (Acute Medical) -See TIA above Patient is admitted inpatient as her stay is anticipated to exceed 2 midnights. FEN: NS at 125 ml/hour, low sodium diet, chemistries in the am. VTE Prophylaxis: Heparin 5000 units bid Disposition: Likely will require rehab stay and/or dementia unit placement Code status: Full code Admission time: 75 minutes Meds reconciled: No Syncope and collapse (Acute Medical) ST IP Initial Evaulation Report PARTS DELIVERY DRIVER Language Evaluation Start: 05/22/19 12:24 Freq: Status: Active Protocol: Document 05/22/19 12:25 LNK (Rec: 05/22/19 12:45 LNK [id number]) Language Evaluation Session Time Visit Start Time 09:30 Visit Stop Time 10:15 Total Visit Minutes [address] Giraldo Reason for Referral CVA Language Evaluation Assessment Type Cognitive-linguistic Past Medical History Patient History The patient is an 83-year-old female with a history of hypertension, chronic kidney disease, dementia, and frequent falls. The patient was seen in the hospital on for presumed TIA. She had right upper extremity weakness that completely resolved. She was sent home. Unfortunately while at home she was unable to ambulate and stand without falling. She was brought back to the hospital for further evaluation. The patient did have a head CT which was negative. An MRI confirmed a small left basal ganglia infarct. The patient has been referred by her PCP to Neurology for evaluation of Parkinson's disease. She has not seen a neurologist and has not been given that diagnosis . Oral Motor Examination Oral Motor Exam Completed Yes: WFL Subjective Subjective Pt was seated in her bedside chair with her daughter, Tricia, attending. Pt was agreeable to answer some questions and participate in a brief assessment. - Informal Assessment Receptive Language Normal No: Decreased processing of information Expressive Language Normal No: Confused answers, easily off topic Articulation Normal Yes Cognition Normal No Formal Assessment Standardized Test SLUMS Examination Administration Complete Raw Score 04/15 Results The results of the SLUMS indicated that the pt's score is interpreted as indicating severe dementia (Range of scores for dementia = 1-19) - Receptive Language - Expressive Language - Findings Language Findings Vicki scored low on the SLUMS indicating severe dementia. She was unable to provide her age (Im 63) abd the year (19 .... something...oh I don't know). Additionally she showed a very limited memory, often forgetting an instruction in < 1 minute. She was unable to complete mental math problems, remember a list of 5 items, and create a clock with a specified time. Finally she could not answer questions following a short story. Alicia's speech was judged to be 100% intelligible. The results of the SLUMS were reviewed with daughter Tricia, who remarked that the family has seen a steady decline in cognition lately. The have been concerned about Alicia's safety for quite some time, she reported. Tricia was not surprised by the results and mentioned she was hopeful that Alicia could be placed in a Memory Care Center. At this time the pt is not a candidate for ST services given poor retention of information in order to make progress. Her prognosis at this time is poor. Recommendations Recommendations ST to discharge at this time. Pt not appropriate for therapy .
--- NOTE | 2019-05-22 14:01 | CM.DPNOTE ---
Addendum entered by BRUNILDA Levin 05/22/19 15:44: Faxed clinical to [facility]. JW Original Note: DCP Cont: Spoke w/ FRETTED STRING INSTRUMENT REPAIRER Hailee this morning, pt scored a 7 on SLUMS; although pt had a CVA, it is not realistic for pt to go to SNF for stroke rehab if she can not retain information, Dr Giraldo and family agree. Reviewed list of locked memory care facilities w/dtr Tricia, dtr Anh( DPOA, Tricia is b/u) was included in conversation by phone, both dtrs request [facility] come do bedside assessment if bed still available, Tricia will tour [facility] and possibly other facilities and hope to have a decision by tomorrow. TC placed to [facility], spoke to Brayan Ramires on vacation. Farzana requests clinical be faxed F# [phone] to help in bedside assessment. She can do bedside assess tomorrow morning at 1000. Updated Dr Giraldo. P: DC likely to memory care facility once one can be secured, family has finances available for this option. Pt is agreeable to a facility w/physical therapy. Prepared family for paying out of pocket for cabulance to facility. Following closely for coordination of safe DCP; at this time pt can no longer safely live at home alone, family looking into facility rather than return home assist. BRUNILDA Levin
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
--- NOTE | 2019-05-22 21:04 | PC.NURSE ---
Patient started getting confuse and agitated this last half an hour
[2019-05-22] MEDS: QUETIAPINE 25 MG TABLET 12.5 MG PO (21:20)
--- NOTE | 2019-05-22 21:47 | PC.NURSE ---
Addendum entered by Jeri Barron R.N. 05/22/19 22:44: 2230- Patient is resting quietly in bed after po Seraquel. Original Note: 2044- Patient agitated and wants to leave. Attempting to get oob and walk without assist. When approached patient becomes more agitated and attempted to push staff away. Patient thinks she is on her property and we are trespassing as it is not our land. Patient is paranoid and has pressured speech. Patient states she needs to use the bathroom but is refusing assist. When told she cannot get oob without assist she becomes very angry. Hospitalist notified and orders rec.
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
--- NOTE | 2019-05-22 23:41 | PC.NURSE ---
Addendum entered by Anita Leigh R.N. 05/23/19 04:16: Pt with intermittent sleep starting around 0200. More calm and cooperative currently - asked for a warm blanket and allowed vitals signs to be taken at 0400. Up to the BR a few times with FWW and SBA. Original Note: Received patient ambulating around room with FWW. Agitated and restless. Pt is confused and hostile holding a soda can in her hand as a perceived weapon. Attempts to reorient unsuccessful. She is suspicious of staff and does not believe she is in the hospital stating wait until the entry level management hears this. Pt continues to ambulate around the room with FWW, SBA with intermittent sitting breaks in bed and the chair. Staff is keeping a safe distance, as getting to close to her increases her hostility and instability on her feet. Will monitor closely.
[2019-05-23 04:30] VITALS: BP 153/75; PULSE 79; RESP 16; TEMP 36.8; O2SAT 94
[2019-05-23 07:00] VITALS: O2SAT 94
[2019-05-23 07:17] LABS: Blood Urea Nitrogen 24 mg/dL (7-17); Calcium 9.3 mg/dL (8.4-10.2); Carbon Dioxide 25 mmol/L (22-32); Chloride 100 mmol/L (98-107); Estimated Glomerular Filt Rate 33.2 mL/min (>60); Glucose 93 mg/dL (80-110); HEMOLYSIS < 15 (0-50); Potassium 4.5 mmol/L (3.4-5.1); Sodium 134 mmol/L (137-145)
[2019-05-23 07:18] LABS: Magnesium 1.8 mg/dL (1.6-2.3)
[2019-05-23 08:00] VITALS: BP 164/88; PULSE 60; RESP 16; TEMP 36.2; O2SAT 93
--- NOTE | 2019-05-23 09:03 | PM.DS.1 ---
History of Present Illness History of Present Illness Date Patient Seen: 05/20/19 Chief complaint: CANT WALK/FATIGUE Narrative: Written by Katy BURTON: Alicia Chapa is a confused 83-year-old female with essential hypertension, and dementia common parkinsonian syndrome, who presents with her daughter, Mery from [place] after a series of multiple falls. Patient is not a reliable historian and minimizes things much of the history is given by her daughter, Mery. Her daughter came out to visit her on May 07 and on the the patient was very fatigued at their local [facility]. She sat down and had to catch her breath. She was eventually able to leave the premises and go home. On May 10 she was eating in a restaurant when she got up to use the bathroom and apparently her legs gave out on her. And then on May 14 she was seen for what appeared to be a seizure-like behavior where she gets really stiff and then has significant can't nasal discharge. She apparently fell when she was penitentiary between the shower and the floor and got wedged in between the shower on the toilet requiring EMS to come and visit her and extracted her from her fall. On May 14 [facility] saw her and then on the they also saw our and told the daughter that they stated she was quite tired. On May 16 the [facility] thought that the patient might be having a CVA. The patient was seen and discharged with a from the emergency department with a suspected TIA. She did not have any focal symptoms at the time and was discharged with aspirin 81 mg daily and for her to discuss with her PCP the feasibility of having an echocardiogram done. The patient fell again this Sunday from a standing position and her daughter was with her when this happened apparently falling on the rug in her bedroom. And then today she was unable to do any of her ADLs, such as showering, getting her clothes on, and feeding herself. Discharge Providers Provider Date of admission: 05/20/19 21:08 Discharge Date: 05/23/19 Primary care physician: Rahat Espinosa MD Consults: 05/20/19 21:28 Consult to Occupational Therapy Evaluate & Treat Comment: Parkinsonion symptoms Physician Instructions: Evaluate and treat Consult to Physical Therapy Evaluate & Treat Comment: Home safety evaluaton Physician Instructions: Evaluate and Treat 05/20/19 22:02 Consult to Mercerizer Machine Operator Routine Comment: Self care 05/21/19 13:14 Consult to Occupational Therapy Evaluate & Treat Comment: Physician Instructions: Evaluate and treat Consult to Physical Therapy Evaluate & Treat Comment: Physician Instructions: Evaluate and Treat Consult to Speech Therapy Evaluate & Treat Comment: Physician Instructions: Evaluate and treat 05/23/19 07:47 Consult to Occupational Therapy Evaluate & Treat Comment: SLUMS Physician Instructions: Evaluate and treat Discharge provider: Yue Alan DO Summary Hospital Course Hospital Course: Alicia Chapa is an 83-year-old female with a past medical history significant for hypertension, chronic kidney disease stage IIIB, advanced dementia, and frequent falls. The patient was seen in the hospital on 05/16 for presumed TIA. She had right upper extremity weakness that completely resolved and she was sent home. Unfortunately, while at home she was unable to ambulate or stand without falling. She was brought back to the hospital for further evaluation. The patient's CT brain without contrast was negative, however, MR stroke protocol demonstrated a small subacute left basal ganglia infarct. The patient has been referred by her PCP to Neurology for evaluation of Parkinson's disease. She has not seen a neurologist and has not been given that diagnosis. In addition, she was recently started on Bactrim for a UTI which led to ELVIS on CKD due to ATN and has since resolved. Her UTI has been adequately treated with 3 days of ceftriaxone. 1. Subacute left basal ganglia CVA, present on admission. Active. -CT brain without contrast did not demonstrate any acute intracranial abnormalities. -MR stroke protocol demonstrated a small subacute left basal ganglia infarct. -Echocardiogram negative for embolic source. -Fasting lipid panel demonstrated: Total cholesterol 166, triglycerides 61, LDL 97, and HDL 57. No need for statin therapy and would be relatively contraindicated in this patient with advanced dementia. -Continued aspirin 81 mg daily and added Plavix 75 mg daily for stroke prophylaxis. -Continued speech, physical and occupational therapy evaluation and treatment. 2. Acute E coli UTI, present on admission. Resolved. -Urine culture grew pansensitive E coli. -Patient received ceftriaxone 2 g IV daily x 3 days total to complete antibiotic course. 3. Acute kidney injury on chronic kidney disease stage IIIB, present on admission. Resolved. -Suspect secondary to acute tubular necrosis from recent Bactrim use. -Baseline creatinine 1.4-1.5. Initial creatinine 2.4 and trended down now to 1.5 which is her baseline. -Discontinued Bactrim. Completed UTI treatment with ceftriaxone 2 g IV x3 doses. -Avoided nephrotoxin agents and optimize renal perfusion. -Continued IV fluids until adequately hydrated the discontinued. 4. Hypertension, chronic, present on admission. Stable. -Continued home lisinopril 5 mg twice daily and given her recent CVA not overly aggressive with blood pressure control. 5. Glaucoma, chronic, present on admission. Stable. -Continued latanoprost gtt in both eyes daily at bedtime. 6. Advanced dementia with behavioral disturbance, acute on chronic, present on admission. Active. -Patient was not medically treated previously for behavioral disturbance and ideally she would have a neurological evaluation as an outpatient for dementia and questionable Parkinson's disease but she had refused previously. -Speech therapy performed a SLUMS +04/26 indicative of advanced dementia. -CT brain without contrast and MR stroke protocol demonstrated extensive volume loss and small vessel ischemic disease likely strategic partnership representative of a vascular dementia. -Continued to reorient often. -Patient has sundowning in the evenings and started Seroquel 25 mg daily at bedtime for sleep maintenance and sundowning. Exam Vital Signs (past 8 hours): - 05/23/19 04:30 05/23/19 07:00 05/23/19 08:00 Temperature 98.2 F 97.1 F L Pulse Rate 79 60 Respiratory Rate 16 16 Blood Pressure 153/75 H 164/88 H Pulse Oximetry 94 94 93 Oxygen Delivery Method Room Air Oxygen Flow Rate 0 Narrative Exam Narrative: General: Elderly female lying in bed and in no acute distress, well-developed, well-nourished, advanced dementia but otherwise appropriately interactive. HEENT: Normocephalic, atraumatic. External ears without defect. Pupils equal, round, and reactive to light. Anicteric sclerae, moist conjunctivae, and no lid lag. No facial droop. Neck: Supple with full range of motion. No jugular venous distension. No bruits. No lymphadenopathy or thyromegaly. Cardiovascular: Regular rate and rhythm without murmurs, rubs, or gallops appreciated. Pulmonary: Clear to auscultation bilaterally without crackles, wheezes, or rhonchi. Normal respiratory effort without use of accessory muscles. Abdomen: Soft, bowel sounds present, nontender, nondistended. No hepatosplenomegaly or masses appreciated. Extremities: No clubbing, cyanosis, or edema. Skin: Normal temperature, turgor, and texture; no rash, ulcers, or subcutaneous nodules appreciated. Neurological: Cranial nerves grossly intact. Overall generalized weakness and deconditioning with right lower extremity weakness new secondary to CVA. Mild bilateral pill-rolling tremor. Psychiatric: Normal mood and affect. Alert and oriented to person only. Advanced dementia with short and long-term memory impairment. Objective Labs Result Diagrams: 05/21/19 04:35 05/23/19 06:37 Labs: Laboratory Results - last 24 hr 05/23/19 05/23/19 06:37 06:37 Sodium 134 L Potassium 4.5 Chloride 100 Carbon Dioxide 25 BUN 24 H Creatinine 1.50 H Estimated GFR 33.2 L BUN/Creatinine Ratio 16.0 Glucose 93 Calcium 9.3 Magnesium 1.8 Discharge Plan Discharge Plan Patient Disposition: Assisted Living Other facility: [facility] Under care of provider: Spike Machine Heater Discharge Med Rec/Prescriptions Prescriptions: New quetiapine 25 mg Tablet 25 mg PO BEDTIME Qty: 30 RF: 0 acetaminophen 325 mg Tablet 650 mg PO Q6HR PRN (Reason: As Needed For Fever/Mild Pain) Qty: 30 RF: 0 clopidogrel 75 mg Tablet 75 mg PO DAILY Qty: 30 RF: 0 Continued lisinopril 5 mg Tablet 5 mg PO BID RF: 0 aspirin [Aspirin Low Dose] 81 mg tablet,delayed release (DR/EC) 81 mg PO DAILY Qty: 60 RF: 0 phenazopyridine 200 mg Tablet 200 mg PO TID PRN (Reason: Bladder Spasms) RF: 0 latanoprost 0.005 % Drops 1 drp EYE-BOTH BEDTIME RF: 0 Discontinued sulfamethoxazole-trimethoprim [Bactrim DS] 800-160 mg Tablet 1 tab PO BID RF: 0 Follow up/Referrals: Rahat Espinosa MD [Primary Care Provider] - Discharge Orders: Discharge (Order); Ordered 05/23/19 Ordered By: Yue Alan Discharge Health Status Brief summary of current health status: Alicia Chapa is an 83-year-old female with a past medical history significant for hypertension, chronic kidney disease stage IIIB, advanced dementia, and frequent falls. The patient was seen in the hospital on 05/16 for presumed TIA. She had right upper extremity weakness that completely resolved and she was sent home. Unfortunately, while at home she was unable to ambulate and stand without falling. She was brought back to the hospital for further evaluation. The patient's CT brain without contrast was negative, however, MR stroke protocol demonstrated a small subacute left basal ganglia infarct. The patient has been referred by her PCP to Neurology for evaluation of Parkinson's disease. She has not seen a neurologist and has not been given that diagnosis. In addition, she was recently started on Bactrim for a UTI which led to ELVIS on CKD due to ATN and has since resolved. Her UTI has been adequately treated with 3 days of ceftriaxone. Provider Discharge Instructions Diet: Diet as Tolerated, Low-fat, Low-sodium and Low-cholesterol Liquid consistency: Normal/Thin Activity: Activity as tolerated with FWW with home health PT and OT [facility] Rehab type: Physical therapy and Occupational therapy Discharge Data Primary Care Provider: Rahat Espinosa VTE Deep Vein Thrombosis/Pulmonary Embolism Present on Admission: No
[2019-05-23] MEDS: LISINOPRIL 10 MG TABLET PO (11:10)
[2019-05-23] MEDS: HEPARIN 5,000 UNIT/ML VIAL 5000 UNIT SUBCUT (11:10)
--- NOTE | 2019-05-23 11:11 | PT.IPTN ---
Current Diagnoses Unspecified dementia without behavioral disturbance (05/20/19) Parkinson's disease (05/20/19) Transient cerebral ischemic attack, unspecified (05/20/19) Acute kidney failure, unspecified (05/20/19) Urinary tract infection, site not specified (05/20/19) Repeated falls (05/20/19) Weakness (05/20/19) Physical Therapy Treatment Note M2 PT-IP Current Condition Start: 05/21/19 10:49 Freq: NEEDED Status: Active Protocol: Document 05/21/19 09:58 AB (Rec: 05/21/19 11:10 AB [id number]) Physical Therapy Current Condition Current Condition Evaluation Date 05/21/19 Treatment Diagnosis UTI; brain TIA; difficulty in walking Onset Date 05/20/19 Precautions Other Precautions falls M3 PT-IP Subjective Start: 05/21/19 10:49 Freq: NEEDED Status: Active Protocol: Document 05/23/19 11:11 AB (Rec: 05/23/19 11:56 AB [email or web address]) Subjective Physical Therapy Visit Type Type Treatment Note Visit Start Time 11:11 Visit Stop Time 11:23 Total Visit Minutes 12 Number of INFERTILITY MEDICAL ASSISTANT Visits 0 Physical Therapy Visit Comments Patient Comments pt agreeable to do PT M4 PT-IP Mobility and Gait Start: 05/21/19 10:49 Freq: NEEDED Status: Active Protocol: Document 05/23/19 11:11 AB (Rec: 05/23/19 11:56 AB [email or web address]) PT-Transfer Assessment Sit to and From Stand Sit to and from Stand Minimal Assistance Equipment Transfer Assistive Device Gait Belt,Front Wheeled Walker Orthotic/Prosthetic Devices or Brace: No Gait Assessment Gait Gait Assistance Required: Minimum Assistance,Moderate Assistance Distance (Feet) 125 Assistive Devices Assistive Device Gait Belt,Front Wheeled Walker Orthotic/Prosthetic Devices or Brace: No Gait Deviations General Gait Pattern Antalgic,Decreased Stride Length,Decreased Feet Clearance Factors Limiting Gait Function Factors Limiting Gait Function Decreased Activity Tolerance, Decreased Strength,Difficulty Following Directions, Incoordination,Limited Range of Motion,Poor Balance,Poor Safety Awareness Comments Gait Comments pt requiring min A to occasional mod A with ambulation using FWW with (+) LOB x 3 requiring mod A. pt has decrease safety awareness affecting mobility. pt with increase R knee flexion during ambulation. M5 PT-IP Objective Assessments Start: 05/21/19 10:49 Freq: NEEDED Status: Active Protocol: Document 05/21/19 09:58 AB (Rec: 05/21/19 11:10 AB [id number]) Orientation Orientation/Cognition Level of Alertness Alert Orientation Name,Age,Birthday,Place, Situation Safety Awareness Decreased Safety Awareness Gross Range of Motion Lower Extremity ROM Assessment Within Functional Limits Strength Lower Extremity Strength Assessment Right Impaired Knee 3+/5 Muscle Tone Comments Muscle Tone Comments pt has tremors on BUE/LE affecting mobility/ambulation M6 PT-IP Treatment Start: 05/21/19 10:49 Freq: NEEDED Status: Active Protocol: Document 05/22/19 15:32 AW (Rec: 05/22/19 15:42 AW [id number]) Physical Therapy Treatment Education Education Provided Safety M7 PT-IP Assessment and Plan Start: 05/21/19 10:49 Freq: NEEDED Status: Active Protocol: Document 05/23/19 11:11 AB (Rec: 05/23/19 11:56 AB [email or web address]) PT Summary Assessment and Plan Potential Rehabilitation Potential Fair Summary Impairments Pain,ROM,Strength,Balance, Coordination,Sensation,Tone, Cognition,Bed Mobility, Transfers,Gait,Activity Tolerance Progress Towards Goals Slow Progress due to Medical Issues,Slow Progress due to Activity Tolerance Assessment Summary pt continues to require min to mod A with mobility and will need SNF rehab to improve strength and function. Goals Bed Mobility Goal Independent Transfer Goal Independent,Front Wheeled Walker Gait Goal Independent,Front Wheel Walker Gait Distance 150 Other Goals up/down 12 steps R rail descendng SBA ambulation without AD ~ 50 ft SBA Days to Meet Goals 5 Frequency of Treatment Frequency Of Treatment Once a Day Treatment Plan Physical Therapy Treatment Plan Bed Mobility Training,Transfer Training,Gait Training, Therapeutic Exercise,Balance Retraining,Discharge Planning, Neuromuscular Re-ed, Coordination Retraining,Manual Therapy Other Recommendations and Next Treatment ambulation, standing balance/ Focus tolerance Recommendations To Nursing Amount of Assist Needed 1 Person Assist Discharge Recommendations PT Discharge Recommendations SNF Rehab
--- NOTE | 2019-05-23 13:54 | PC.NURSE ---
Addendum entered by Asiya Almaraz R.N. 05/23/19 13:57: 1330:[facility] to take Pt later today. Transportation being arranged. 1000 meeting with Tracey Webber, no show. [facility] is set to see Pt for assessment. Original Note: AM shift Pt is resting quietly at this time, up much of byproducts extractor, will allow to sleep. Pt wakes on own @ 0900, pleasant and cooperative. Cautious with staff, but agreeable. Short term memory is poor, poor safety awareness. FWW up to BR with SBA. Hypertensive, took AM meds late. Refused IV ABX. Family is worried about getting paperwork for financial POA and medical POA, which requires 2 MDs. Will follow up with CM for this.
[2019-05-23 13:58] VITALS: BP 126/69; PULSE 67; RESP 16; TEMP 36.6; O2SAT 94
[2019-05-23] MEDS: CLOPIDOGREL 75 MG TABLET PO (14:56)
[2019-05-23] MEDS: QUETIAPINE 25 MG TABLET 12.5 MG PO (15:41)
--- NOTE | 2019-05-23 15:46 | PC.NURSE ---
1545- Patient pre medicated for her trip to the [facility]. Daughter Mery at bedside and aware of the plan for discharge. IV heplock dc'd. Patient tolerated well.
--- NOTE | 2019-05-23 16:56 | CM.DPC ---
DCP/continued: Reviewed chart. Spoke with MD and patient medically stable for discharge today. Initial plan was for [facility] to assess this AM. SCREEN PRINTING MACHINE OPERATOR HELPER spoke with daughter Mery today and they are requesting evaluation from [facility] [place] SCREEN PRINTING MACHINE OPERATOR HELPER placed call and requested SELAM/Elo fax clinicals to [facility] [place] Per Bindu, they do have female bed today. Bedside assessment occurred this afternoon by [facility]. They are in agreement to accept. Daughter at bedside and in agreement to cover cost of transport to facility. Orders obtained and needed paperwork completed by Dr. Alan for [facility]. Transport arranged through [facility]. Patient scheduled to be picked up around 4:00pm. RN and facility aware and agreeable. Daughter plans to follow. P: [facility] in [place] today. Facility will coordinate therapy once patient settles in. No additional needs identified. BRUNILDA Maloney
== END 2019-05-23 16:25 | DRG 64 ==
LOC: ED 20:45 → AC 21:09 → ICU 21:19
PROVIDERS: Internal Medicine; Nurse Practitioner Adult Health; Admitting Provider Nurse Practitioner Family; Emergency Provider Emergency Medicine; Family Provider Family Medicine; PCP Family Medicine; Visit Provider Nurse Practitioner Family
DX: I63.9 Cerebral infarction, unspecified (principal); N17.0 Acute kidney failure with tubular necrosis; N39.0 Urinary tract infection, site not specified; F03.91 Unspecified dementia, unspecified severity, with behavioral disturbance; R40.2362 Coma scale, best motor response, obeys commands, at arrival to emergency department; R40.2142 Coma scale, eyes open, spontaneous, at arrival to emergency department; R40.2242 Coma scale, best verbal response, confused conversation, at arrival to emergency department; N14.1 Nephropathy induced by other drugs, medicaments and biological substances; I10 Essential (primary) hypertension; T37.0X5A Adverse effect of sulfonamides, initial encounter; Z91.81 History of falling; W18.30XD Fall on same level, unspecified, subsequent encounter; Z87.891 Personal history of nicotine dependence; B96.20 Unspecified Escherichia coli [E. coli] as the cause of diseases classified elsewhere; H40.9 Unspecified glaucoma
CPT/HCPCS: 36415; 36591; 70450; 70551; 80048; 80053; 80061; 80305; 80320; 80329; 83605; 83735; 84146; 84443; 84484; 85025; 85610; 85730; 87040; 87086; 87797; 92523; 93005; 93306; 96360; 97116; 97162; 97165; 97535; 99283; 99284; G0480; J1644; J2405; J7050